=== PATIENT | female | born 1965 | race Caucasian/White ===

== ENCOUNTER 2017-10-31 20:16 | Inpatient (IN) | payer MEDICARE, BC ==
[~2017-10-31] VITALS: Ht 165.1 cm; Wt 77.0 kg
[~2017-10-31 20:16] MED LIST: ALBU18HF2 INH; ASPI-845 PO; CARV-50 PO; DILT180C66 PO; FOLI0.8T7 PO; FURO80TA3 PO; GUAI1TBM19 PO; HYDR-4069 PO; IPRA3AMP IH; METO5TAB7 PO; SERT50TA10 PO; SEVE800T7 PO; SPIIN INH; ZINC50TA4 PO; biotin PO
[2017-10-31 20:36] LABS: HEMATOCRIT 30.7 % (35.0-45.0); HEMOGLOBIN 10.2 g/dl (12.0-16.0); MEAN CORPUSCULAR HEMOGLOBIN 31.3 PG (27.0-31.0); MEAN CORPUSCULAR HGB CONC 33.1 % (33.0-36.5); MEAN CORPUSCULAR VOLUME 94.4 FL (78-98); MEAN PLATELET VOLUME 8.6 FL (7.4-10.4); PLATELET COUNT 221 X10'3 (140-440); RED BLOOD COUNT 3.25 X10'6 (4.20-5.60); RED CELL DISTRIBUTION WIDTH 15.4 % (11.5-14.5); WHITE BLOOD COUNT 8.1 X10'3 (4.5-11.0)
[2017-10-31 20:47] LABS: INR 1.2 INR; PARTIAL THROMBOPLASTIN TIME 25 SECONDS (22-32)
[2017-10-31 20:50] LABS: ALBUMIN 2.6 G/DL (3.4-5.0); ALBUMIN/GLOBULIN RATIO 0.7 (1.1-1.5); ALKALINE PHOSPHATASE 127 IU/L (46-116); ANION GAP 23 (8-16); ASPARTATE AMINO TRANSFERASE 8 U/L (10-37); BILIRUBIN,TOTAL 0.4 MG/DL (0.1-1.0); BLOOD UREA NITROGEN 59 MG/DL (7-18); CALCIUM 8.5 MG/DL (8.5-10.1); CHLORIDE 98 MMOL/L (99-107); CREATININE 14.83 MG/DL (0.40-0.90); GLUCOSE 99 MG/DL (70-104); POTASSIUM 3.3 MMOL/L (3.5-5.1); SODIUM 142 MMOL/L (135-145); TOTAL CARBON DIOXIDE 21.1 MMOL/L (24-32); TOTAL PROTEIN 6.3 G/DL (6.4-8.2); eGFR 3 ML/MIN
[2017-10-31 20:54] LABS: ALANINE AMINOTRANSFERASE < 6 U/L (12-78)
[2017-10-31 21:03] LABS: TOTAL CELLS COUNTED 100
[2017-10-31 21:04] LABS: ANISOCYTOSIS FEW; PLATELET ESTIMATE NORMAL; POIKILOCYTOSIS FEW
[2017-10-31 21:23] LABS: MAGNESIUM 2.2 MG/DL (1.5-2.4); PHOSPHORUS 6.5 MG/DL (2.3-4.5)
[2017-10-31] MEDS ORDERED: sodium bicarbonate (8.4%) 1 mEq/ml syringe IV ONE (21:30)
[2017-10-31] MEDS ORDERED: magnesium/D5W IVPB 100 ML IV ONE (21:40)
[2017-10-31] MEDS ORDERED: acetaminophen 325mg tablet PO PRN (22:15)
[2017-10-31] MEDS ORDERED: DILT180C53 PO (22:42)
[2017-10-31] MEDS ORDERED: VALS80TA2 PO (22:42)
[2017-10-31] MEDS ORDERED: FURO80TA87 PO (22:43)
[2017-10-31] MEDS ORDERED: CINA30TA PO (22:43)
[2017-10-31] MEDS ORDERED: CARV3.122 PO (22:45)
[2017-10-31 23:52] VITALS: BP 157/70
[2017-11-01] MEDS ORDERED: ipratropium/albuterol 3ml nebule IH PRN
[2017-11-01] MEDS ORDERED: albuterol 2.5 MG/3 ML nebule NEB PRN (00:40)
[2017-11-01] MEDS ORDERED: GUAIFENESIN PO PRN (00:50)
[2017-11-01] MEDS ORDERED: DEXTROMETHORPHAN PO PRN (00:50)
[2017-11-01] MEDS ORDERED: HYDROcodone/acetaminophen 5mg/325mg tablet PO PRN ×2 (00:55)
[2017-11-01] MEDS ORDERED: ipratropium 0.5 MG/2.5ML nebule IH PRN (00:55)
[2017-11-01] MEDS: hydrALAZINE 25 MG tablet PO SCH ×4 (01:02→23:48)
[2017-11-01 03:00] VITALS: BP 154/61
[2017-11-01 03:27] LABS: BASOPHILS % (AUTO) 0.3 % (0-1); EOSINOPHILS # (AUTO) 0.4 X10'3 (0-0.9); EOSINOPHILS % (AUTO) 5.3 % (0-6); HEMATOCRIT 29.5 % (35.0-45.0); HEMOGLOBIN 9.8 g/dl (12.0-16.0); LYMPHOCYTES # (AUTO) 0.9 X10'3 (1.1-4.8); LYMPHOCYTES % (AUTO) 11.1 % (21-51); MEAN CORPUSCULAR HEMOGLOBIN 31.5 PG (27.0-31.0); MEAN CORPUSCULAR HGB CONC 33.3 % (33.0-36.5); MEAN CORPUSCULAR VOLUME 94.5 FL (78-98); MEAN PLATELET VOLUME 8.8 FL (7.4-10.4); MONOCYTES # (AUTO) 0.5 X10'3 (0-0.9); MONOCYTES % (AUTO) 6.4 % (2-12); NEUTROPHILS # (AUTO) 6.5 X10'3 (1.8-7.7); NEUTROPHILS % (AUTO) 76.9 % (42-75); PLATELET COUNT 216 X10'3 (140-440); RED BLOOD COUNT 3.13 X10'6 (4.20-5.60); RED CELL DISTRIBUTION WIDTH 15.1 % (11.5-14.5); WHITE BLOOD COUNT 8.5 X10'3 (4.5-11.0)
[2017-11-01 03:46] LABS: ALBUMIN 2.6 G/DL (3.4-5.0); ANION GAP 15 (8-16); BLOOD UREA NITROGEN 59 MG/DL (7-18); BUN/CREATININE RATIO 3.8 (6.6-38.0); CALCIUM 8.6 MG/DL (8.5-10.1); CHLORIDE 99 MMOL/L (99-107); CREATININE 15.53 MG/DL (0.40-0.90); GLUCOSE 107 MG/DL (70-104); MAGNESIUM 2.7 MG/DL (1.5-2.4); PHOSPHORUS 6.9 MG/DL (2.3-4.5); POTASSIUM 3.2 MMOL/L (3.5-5.1); SODIUM 141 MMOL/L (135-145); TOTAL CARBON DIOXIDE 26.6 MMOL/L (24-32); eGFR 2 ML/MIN
[2017-11-01 06:00] VITALS: BP 140/61
[2017-11-01] MEDS ORDERED: SEVELAMER HCL PO SCH (08:00)
[2017-11-01] MEDS: valsartan 80mg tablet PO SCH (08:00)
[2017-11-01] MEDS: metolazone 2.5mg tablet PO SCH (08:00)
[2017-11-01] MEDS: furosemide 40mg tablet PO SCH ×2 (08:00→21:41)
[2017-11-01] MEDS: diltiazem CD 180mg cap (once-daily) PO SCH ×2 (08:00→21:41)
[2017-11-01] MEDS: carVEDilol 3.125mg tablet PO SCH ×2 (08:00→21:47)
[2017-11-01] MEDS: folic acid/vitamin B complex w/vitamin C 0.8mg tablet PO SCH (08:14)
[2017-11-01] MEDS: aspirin 325mg tablet, delayed-release (Ecotrin) PO SCH (08:14)
[2017-11-01] MEDS: sertraline 50mg tablet PO SCH (08:15)
[2017-11-01] MEDS: zinc sulfate 220mg capsule PO SCH (08:15)
[2017-11-01] MEDS: heparin, porcine 5000 units/ml vial SQ SCH ×2 (08:16→21:41)
[2017-11-01] MEDS ORDERED: normal saline 1000ml 250 ML IV PRN (08:38)
[2017-11-01] MEDS ORDERED: LIDOcaine 1% (10mg/ml) 2ml vial SQ ONE (08:40)
[2017-11-01] MEDS ORDERED: heparin 1,000 units/ml 10ml inj IV ONE (08:40)
[2017-11-01] MEDS ORDERED: epoetin 20,000 units/ml inj IV ONE (08:40)
[2017-11-01 09:05] LABS: C DIFF ANTIGEN POSITIVE (NEGATIVE); C DIFF SPECIMEN=DIARRHEA? ACCEPTABLE; C DIFFICILE TOXINS A&B POSITIVE (Neg)
[2017-11-01] MEDS ORDERED: vancomycin 250MG/10ML UD oral solution 10ML BOTTLE PO SCH (09:35)
[2017-11-01] MEDS: sevelamer carbonate 800mg tablet PO SCH ×3 (10:45→18:03)
[2017-11-01] MEDS: cinacalcet 30mg tablet PO SCH (10:46)
[2017-11-01 11:00] VITALS: BP 183/80
[2017-11-01] MEDS: vancomcyin 250mg capsules PO SCH ×2 (14:24→21:41)
[2017-11-01 15:00] VITALS: BP 161/77
[2017-11-01 19:00] VITALS: BP 163/74
[2017-11-01 23:00] VITALS: BP 169/76
[2017-11-02] MEDS: vancomcyin 250mg capsules PO SCH ×4 (02:25→20:52)
[2017-11-02 03:54] VITALS: BP 152/66
[2017-11-02 07:15] VITALS: BP 155/72
[2017-11-02 07:20] LABS: BASOPHILS % (AUTO) 0.5 % (0-1); EOSINOPHILS # (AUTO) 0.7 X10'3 (0-0.9); EOSINOPHILS % (AUTO) 11.2 % (0-6); HEMATOCRIT 30.9 % (35.0-45.0); HEMOGLOBIN 10.2 g/dl (12.0-16.0); LYMPHOCYTES # (AUTO) 0.7 X10'3 (1.1-4.8); LYMPHOCYTES % (AUTO) 12.1 % (21-51); MEAN CORPUSCULAR HGB CONC 33.1 % (33.0-36.5); MEAN CORPUSCULAR VOLUME 93.7 FL (78-98); MEAN PLATELET VOLUME 8.3 FL (7.4-10.4); MONOCYTES # (AUTO) 0.6 X10'3 (0-0.9); MONOCYTES % (AUTO) 10.3 % (2-12); NEUTROPHILS # (AUTO) 3.9 X10'3 (1.8-7.7); NEUTROPHILS % (AUTO) 65.9 % (42-75); PLATELET COUNT 216 X10'3 (140-440); RED CELL DISTRIBUTION WIDTH 15.9 % (11.5-14.5); WHITE BLOOD COUNT 5.9 X10'3 (4.5-11.0)
[2017-11-02 07:32] LABS: ALBUMIN 2.6 G/DL (3.4-5.0); ANION GAP 10 (8-16); BLOOD UREA NITROGEN 14 MG/DL (7-18); CALCIUM 8.2 MG/DL (8.5-10.1); CHLORIDE 103 MMOL/L (99-107); CREATININE 6.91 MG/DL (0.40-0.90); GLUCOSE 105 MG/DL (70-104); PHOSPHORUS 3.6 MG/DL (2.3-4.5); POTASSIUM 3.4 MMOL/L (3.5-5.1); SODIUM 141 MMOL/L (135-145); TOTAL CARBON DIOXIDE 28.4 MMOL/L (24-32); eGFR 6 ML/MIN
[2017-11-02] MEDS: sevelamer carbonate 800mg tablet PO SCH ×4 (08:00→17:42)
[2017-11-02] MEDS: sertraline 50mg tablet PO SCH (09:09)
[2017-11-02] MEDS: zinc sulfate 220mg capsule PO SCH (09:09)
[2017-11-02] MEDS: cinacalcet 30mg tablet PO SCH (09:10)
[2017-11-02] MEDS: folic acid/vitamin B complex w/vitamin C 0.8mg tablet PO SCH (09:10)
[2017-11-02] MEDS: aspirin 325mg tablet, delayed-release (Ecotrin) PO SCH (09:10)
[2017-11-02] MEDS: hydrALAZINE 25 MG tablet PO SCH ×2 (09:10→16:00)
[2017-11-02] MEDS: carVEDilol 3.125mg tablet PO SCH ×2 (09:10→20:53)
[2017-11-02] MEDS: metolazone 2.5mg tablet PO SCH (09:10)
[2017-11-02] MEDS: diltiazem CD 180mg cap (once-daily) PO SCH ×2 (09:10→20:53)
[2017-11-02] MEDS: furosemide 40mg tablet PO SCH ×2 (09:11→20:52)
[2017-11-02] MEDS: valsartan 80mg tablet PO SCH (09:11)
[2017-11-02] MEDS: heparin, porcine 5000 units/ml vial SQ SCH ×2 (09:12→20:51)
[2017-11-02] MEDS ORDERED: hydrocortisone acetate 25mg rectal suppository RC PRN (11:25)
[2017-11-02] MEDS ORDERED: sevelamer carbonate 800mg tablet PO SCH (12:10)
[2017-11-02 13:59] VITALS: BP 141/68
[2017-11-02] MEDS: diphenhydrAMINE 25mg capsule PO PRN (15:01)
[2017-11-02 17:07] VITALS: BP 124/70
[2017-11-02 18:00] VITALS: BP 112/70
[2017-11-02] MEDS ORDERED: lactobacillus rhamnosus 10,000 MMU CELLS/CAPSULE PO SCH (20:00)
[2017-11-02 22:00] VITALS: BP 154/75
[2017-11-03] MEDS: diphenhydrAMINE 25mg capsule PO PRN ×3 (00:30→19:52)
[2017-11-03] MEDS: hydrALAZINE 25 MG tablet PO SCH ×3 (00:30→16:16)
[2017-11-03] MEDS: vancomcyin 250mg capsules PO SCH ×4 (01:45→19:52)
[2017-11-03 02:00] VITALS: BP 156/64
[2017-11-03 05:34] LABS: BASOPHILS % (AUTO) 0.5 % (0-1); EOSINOPHILS # (AUTO) 0.8 X10'3 (0-0.9); EOSINOPHILS % (AUTO) 15.3 % (0-6); HEMATOCRIT 30.1 % (35.0-45.0); LYMPHOCYTES # (AUTO) 1.1 X10'3 (1.1-4.8); LYMPHOCYTES % (AUTO) 21.2 % (21-51); MEAN CORPUSCULAR HEMOGLOBIN 31.3 PG (27.0-31.0); MEAN CORPUSCULAR HGB CONC 33.4 % (33.0-36.5); MEAN CORPUSCULAR VOLUME 93.9 FL (78-98); MEAN PLATELET VOLUME 8.2 FL (7.4-10.4); MONOCYTES # (AUTO) 0.6 X10'3 (0-0.9); NEUTROPHILS # (AUTO) 2.7 X10'3 (1.8-7.7); PLATELET COUNT 215 X10'3 (140-440); RED CELL DISTRIBUTION WIDTH 15.8 % (11.5-14.5); WHITE BLOOD COUNT 5.3 X10'3 (4.5-11.0)
[2017-11-03 06:00] VITALS: BP 146/70
[2017-11-03 06:10] LABS: ALBUMIN 2.7 G/DL (3.4-5.0); ANION GAP 12 (8-16); BLOOD UREA NITROGEN 18 MG/DL (7-18); CALCIUM 8.1 MG/DL (8.5-10.1); CHLORIDE 102 MMOL/L (99-107); CREATININE 8.96 MG/DL (0.40-0.90); GLUCOSE 109 MG/DL (70-104); MAGNESIUM 2.1 MG/DL (1.5-2.4); PHOSPHORUS 4.3 MG/DL (2.3-4.5); SODIUM 143 MMOL/L (135-145); TOTAL CARBON DIOXIDE 28.7 MMOL/L (24-32); eGFR 5 ML/MIN
[2017-11-03] MEDS ORDERED: potassium Cl 20 mEq SR tablet PO PRN ×4 (06:30→06:50)
[2017-11-03] MEDS ORDERED: potassium Cl 40MEQ/NS 500ml 500 ML IV PRN ×4 (06:30→06:50)
[2017-11-03] MEDS: heparin, porcine 5000 units/ml vial SQ SCH ×2 (07:37→19:53)
[2017-11-03] MEDS: metolazone 2.5mg tablet PO SCH (07:37)
[2017-11-03] MEDS: valsartan 80mg tablet PO SCH (07:38)
[2017-11-03] MEDS: sertraline 50mg tablet PO SCH (07:40)
[2017-11-03] MEDS: cinacalcet 30mg tablet PO SCH (07:40)
[2017-11-03] MEDS: aspirin 325mg tablet, delayed-release (Ecotrin) PO SCH (07:41)
[2017-11-03] MEDS: diltiazem CD 180mg cap (once-daily) PO SCH ×2 (07:41→19:52)
[2017-11-03] MEDS: carVEDilol 3.125mg tablet PO SCH ×2 (07:41→19:52)
[2017-11-03] MEDS: zinc sulfate 220mg capsule PO SCH (07:41)
[2017-11-03] MEDS: folic acid/vitamin B complex w/vitamin C 0.8mg tablet PO SCH (07:42)
[2017-11-03] MEDS: furosemide 40mg tablet PO SCH ×2 (07:42→19:52)
[2017-11-03] MEDS: sevelamer carbonate 800mg tablet PO SCH ×3 (07:43→18:00)
[2017-11-03] MEDS ORDERED: K and/or MAG REPLACEMENT MC SCH ×2 (08:00)
[2017-11-03 11:00] VITALS: BP 137/79
[2017-11-03 15:00] VITALS: BP 141/74
[2017-11-03 19:00] VITALS: BP 155/72
[2017-11-03 23:00] VITALS: BP 151/66
[2017-11-04] MEDS: hydrALAZINE 25 MG tablet PO SCH ×3 (00:33→16:00)
[2017-11-04] MEDS: vancomcyin 250mg capsules PO SCH ×4 (01:08→22:20)
[2017-11-04 06:00] VITALS: BP 144/61
[2017-11-04 06:04] LABS: BASOPHILS % (AUTO) 0.3 % (0-1); EOSINOPHILS # (AUTO) 0.9 X10'3 (0-0.9); EOSINOPHILS % (AUTO) 13.4 % (0-6); HEMOGLOBIN 9.9 g/dl (12.0-16.0); LYMPHOCYTES % (AUTO) 16.1 % (21-51); MEAN CORPUSCULAR HEMOGLOBIN 31.4 PG (27.0-31.0); MEAN CORPUSCULAR HGB CONC 33.1 % (33.0-36.5); MEAN CORPUSCULAR VOLUME 94.9 FL (78-98); MEAN PLATELET VOLUME 8.2 FL (7.4-10.4); MONOCYTES # (AUTO) 0.7 X10'3 (0-0.9); MONOCYTES % (AUTO) 10.8 % (2-12); NEUTROPHILS # (AUTO) 3.8 X10'3 (1.8-7.7); NEUTROPHILS % (AUTO) 59.4 % (42-75); PLATELET COUNT 210 X10'3 (140-440); RED BLOOD COUNT 3.16 X10'6 (4.20-5.60); RED CELL DISTRIBUTION WIDTH 15.7 % (11.5-14.5); WHITE BLOOD COUNT 6.4 X10'3 (4.5-11.0)
[2017-11-04 06:12] LABS: ALBUMIN 2.7 G/DL (3.4-5.0); ANION GAP 15 (8-16); BLOOD UREA NITROGEN 31 MG/DL (7-18); CALCIUM 8.1 MG/DL (8.5-10.1); CHLORIDE 103 MMOL/L (99-107); CREATININE 10.49 MG/DL (0.40-0.90); GLUCOSE 84 MG/DL (70-104); MAGNESIUM 2.4 MG/DL (1.5-2.4); PHOSPHORUS 4.9 MG/DL (2.3-4.5); POTASSIUM 4.2 MMOL/L (3.5-5.1); SODIUM 144 MMOL/L (135-145); TOTAL CARBON DIOXIDE 26.5 MMOL/L (24-32); eGFR 4 ML/MIN
[2017-11-04] MEDS: diltiazem CD 180mg cap (once-daily) PO SCH ×2 (07:31→22:24)
[2017-11-04] MEDS: furosemide 40mg tablet PO SCH ×2 (07:31→22:21)
[2017-11-04] MEDS: carVEDilol 3.125mg tablet PO SCH ×2 (07:32→22:20)
[2017-11-04] MEDS: valsartan 80mg tablet PO SCH (07:32)
[2017-11-04] MEDS: metolazone 2.5mg tablet PO SCH (07:32)
[2017-11-04] MEDS: sevelamer carbonate 800mg tablet PO SCH ×3 (07:32→18:00)
[2017-11-04] MEDS: aspirin 325mg tablet, delayed-release (Ecotrin) PO SCH (07:33)
[2017-11-04] MEDS: diphenhydrAMINE 25mg capsule PO PRN ×3 (07:33→22:20)
[2017-11-04] MEDS: cinacalcet 30mg tablet PO SCH (07:33)
[2017-11-04] MEDS: zinc sulfate 220mg capsule PO SCH (07:33)
[2017-11-04] MEDS: folic acid/vitamin B complex w/vitamin C 0.8mg tablet PO SCH (07:33)
[2017-11-04] MEDS: sertraline 50mg tablet PO SCH (07:33)
[2017-11-04] MEDS: heparin, porcine 5000 units/ml vial SQ SCH ×2 (07:47→22:20)
[2017-11-04] MEDS ORDERED: normal saline 1000ml 250 ML IV PRN (08:00)
[2017-11-04] MEDS ORDERED: epoetin 20,000 units/ml inj IV ONE (08:00)
[2017-11-04] MEDS ORDERED: heparin 1,000 units/ml 10ml inj IV ONE (08:00)
[2017-11-04] MEDS ORDERED: LIDOcaine 1% (10mg/ml) 2ml vial SQ ONE (08:00)
[2017-11-04 11:00] VITALS: BP 152/71
[2017-11-04] MEDS ORDERED: ondansetron 4mg rapidly disintigrating tab PO PRN (13:15)
[2017-11-04 15:00] VITALS: BP 148/65
[2017-11-04 19:00] VITALS: BP 138/72
[2017-11-04 23:00] VITALS: BP 148/74
[2017-11-05] MEDS: hydrALAZINE 25 MG tablet PO SCH ×3 (01:05→16:00)
[2017-11-05] MEDS: vancomcyin 250mg capsules PO SCH ×3 (01:05→14:00)
[2017-11-05 03:00] VITALS: BP 149/73
[2017-11-05 06:00] VITALS: BP 135/60
[2017-11-05 06:10] LABS: BASOPHILS % (AUTO) 0.4 % (0-1); EOSINOPHILS # (AUTO) 0.9 X10'3 (0-0.9); EOSINOPHILS % (AUTO) 11.4 % (0-6); HEMATOCRIT 33.5 % (35.0-45.0); HEMOGLOBIN 11.2 g/dl (12.0-16.0); LYMPHOCYTES # (AUTO) 1.1 X10'3 (1.1-4.8); LYMPHOCYTES % (AUTO) 13.2 % (21-51); MEAN CORPUSCULAR HGB CONC 33.4 % (33.0-36.5); MEAN CORPUSCULAR VOLUME 95.7 FL (78-98); MEAN PLATELET VOLUME 8.2 FL (7.4-10.4); MONOCYTES # (AUTO) 0.7 X10'3 (0-0.9); NEUTROPHILS # (AUTO) 5.3 X10'3 (1.8-7.7); PLATELET COUNT 194 X10'3 (140-440); RED CELL DISTRIBUTION WIDTH 15.9 % (11.5-14.5); WHITE BLOOD COUNT 8.1 X10'3 (4.5-11.0)
[2017-11-05 06:28] LABS: ANION GAP 9 (8-16); BLOOD UREA NITROGEN 11 MG/DL (7-18); BUN/CREATININE RATIO 2.1 (6.6-38.0); CHLORIDE 101 MMOL/L (99-107); CREATININE 5.32 MG/DL (0.40-0.90); GLUCOSE 80 MG/DL (70-104); PHOSPHORUS 4.1 MG/DL (2.3-4.5); POTASSIUM 4.4 MMOL/L (3.5-5.1); SODIUM 141 MMOL/L (135-145); TOTAL CARBON DIOXIDE 31.4 MMOL/L (24-32); eGFR 8 ML/MIN
[2017-11-05] MEDS: aspirin 325mg tablet, delayed-release (Ecotrin) PO SCH (08:18)
[2017-11-05] MEDS: diltiazem CD 180mg cap (once-daily) PO SCH (08:18)
[2017-11-05] MEDS: metolazone 2.5mg tablet PO SCH (08:18)
[2017-11-05] MEDS: sertraline 50mg tablet PO SCH (08:19)
[2017-11-05] MEDS: valsartan 80mg tablet PO SCH (08:19)
[2017-11-05] MEDS: zinc sulfate 220mg capsule PO SCH (08:19)
[2017-11-05] MEDS: cinacalcet 30mg tablet PO SCH (08:19)
[2017-11-05] MEDS: diphenhydrAMINE 25mg capsule PO PRN (08:19)
[2017-11-05] MEDS: folic acid/vitamin B complex w/vitamin C 0.8mg tablet PO SCH (08:19)
[2017-11-05] MEDS: furosemide 40mg tablet PO SCH (08:19)
[2017-11-05] MEDS: carVEDilol 3.125mg tablet PO SCH (08:19)
[2017-11-05] MEDS: sevelamer carbonate 800mg tablet PO SCH ×2 (08:19→13:00)
[2017-11-05] MEDS: heparin, porcine 5000 units/ml vial SQ SCH (08:20)
[2017-11-05 11:00] VITALS: BP 111/70
[2017-11-05] MEDS ORDERED: VANC250C4 PO (13:42)
[2017-11-05 15:00] VITALS: BP 111/54
== END 2017-11-05 15:55 | disposition home or self-care (01) | DRG 371 ==
LOC: ER 20:17 → ED HOLD 22:14 → PCU 3S 23:28
PROVIDERS: ADMIT Internal Medicine Critical Care Medicine; ATTEND Internal Medicine Critical Care Medicine
PROC: 5A1D70Z Performance of Urinary Filtration, Intermittent, Less than 6 Hours Per Day (ICD-10-PCS; 2017-11-01)
PROC: 5A1D70Z Performance of Urinary Filtration, Intermittent, Less than 6 Hours Per Day (ICD-10-PCS; principal; 2017-11-04)
DX: A04.72 Enterocolitis due to Clostridium difficile, not specified as recurrent (principal); N18.6 End stage renal disease; I47.1 Supraventricular tachycardia; I13.2 Hypertensive heart and chronic kidney disease with heart failure and with stage 5 chronic kidney disease, or end stage renal disease; F17.200 Nicotine dependence, unspecified, uncomplicated; G89.29 Other chronic pain; I27.20 Pulmonary hypertension, unspecified; I45.81 Long QT syndrome; I50.9 Heart failure, unspecified; J44.9 Chronic obstructive pulmonary disease, unspecified; E87.6 Hypokalemia; Z90.721 Acquired absence of ovaries, unilateral; Z98.1 Arthrodesis status; Z99.2 Dependence on renal dialysis; Z88.8 Allergy status to other drugs, medicaments and biological substances; Z79.899 Other long term (current) drug therapy; Z79.82 Long term (current) use of aspirin
CPT/HCPCS: 36415; 71045; 80048; 80053; 83735; 84100; 84484; 85025; 85610; 85730; 87070; 87324; 87449; 93005; 94760; 96365; 99285; A6402; A6449; G0257; J0885; J1644; J3490; J7030; Q0163

== ENCOUNTER 2017-11-25 13:44 | Emergency (ER) | payer MEDICARE, BC ==
[~2017-11-25] VITALS: Ht 571.8 cm; Wt 75.0 kg
[~2017-11-25 13:44] MED LIST changes: -CARV-50 PO; +CARV3.122 PO; +CINA30TA PO; +DILT180C53 PO; -DILT180C66 PO; -FURO80TA3 PO; +FURO80TA87 PO; -HYDR-4069 PO; +VALS80TA2 PO; +VANC250C4 PO
[2017-11-25] MEDS ORDERED: nitroGLYCERIN 1gm ointment UD TP ONE (13:50)
[2017-11-25] MEDS ORDERED: metoprolol tartrate 1mg/ml inj IV ONE (13:50)
[2017-11-25 14:01] LABS: BASOPHILS % (AUTO) 0.5 % (0-1); EOSINOPHILS # (AUTO) 0.8 X10'3 (0-0.9); EOSINOPHILS % (AUTO) 13.8 % (0-6); HEMATOCRIT 33.1 % (35.0-45.0); LYMPHOCYTES # (AUTO) 0.9 X10'3 (1.1-4.8); LYMPHOCYTES % (AUTO) 16.3 % (21-51); MEAN CORPUSCULAR HEMOGLOBIN 30.7 PG (27.0-31.0); MEAN CORPUSCULAR HGB CONC 33.2 % (33.0-36.5); MEAN CORPUSCULAR VOLUME 92.6 FL (78-98); MEAN PLATELET VOLUME 8.5 FL (7.4-10.4); MONOCYTES # (AUTO) 0.5 X10'3 (0-0.9); MONOCYTES % (AUTO) 8.2 % (2-12); NEUTROPHILS # (AUTO) 3.5 X10'3 (1.8-7.7); NEUTROPHILS % (AUTO) 61.2 % (42-75); PLATELET COUNT 170 X10'3 (140-440); RED BLOOD COUNT 3.57 X10'6 (4.20-5.60); RED CELL DISTRIBUTION WIDTH 16.2 % (11.5-14.5); WHITE BLOOD COUNT 5.7 X10'3 (4.5-11.0)
[2017-11-25 14:18] LABS: ALANINE AMINOTRANSFERASE 19 U/L (12-78); ALBUMIN 3.3 G/DL (3.4-5.0); ALBUMIN/GLOBULIN RATIO 0.9 (1.1-1.5); ALKALINE PHOSPHATASE 137 IU/L (46-116); ANION GAP 6 (8-16); ASPARTATE AMINO TRANSFERASE 14 U/L (10-37); BILIRUBIN,TOTAL 0.8 MG/DL (0.1-1.0); BLOOD UREA NITROGEN 19 MG/DL (7-18); BUN/CREATININE RATIO 3.4 (6.6-38.0); CALCIUM 8.9 MG/DL (8.5-10.1); CHLORIDE 98 MMOL/L (99-107); CREATININE 5.58 MG/DL (0.40-0.90); GLUCOSE 84 MG/DL (70-104); POTASSIUM 3.6 MMOL/L (3.5-5.1); SODIUM 139 MMOL/L (135-145); TOTAL CARBON DIOXIDE 34.7 MMOL/L (24-32); eGFR 8 ML/MIN
[2017-11-25 14:25] LABS: MAGNESIUM 2.1 MG/DL (1.5-2.4)
[2017-11-25 17:33] VITALS: BP 159/76
[2017-11-28] MEDS ORDERED: SEVE800T8 PO (13:59)
[2017-11-30] MEDS ORDERED: METR500T4 PO (11:57)
[2017-11-30] MEDS ORDERED: VANC125C4 PO (11:57)
[2017-11-30] MEDS ORDERED: CLE150C PO (11:57)
== END 2017-11-25 17:34 | disposition home or self-care (01) ==
LOC: ER 13:45
DX: I48.91 Unspecified atrial fibrillation (principal); J44.9 Chronic obstructive pulmonary disease, unspecified; I13.0 Hypertensive heart and chronic kidney disease with heart failure and stage 1 through stage 4 chronic kidney disease, or unspecified chronic kidney disease; N18.9 Chronic kidney disease, unspecified; G89.29 Other chronic pain; Z98.890 Other specified postprocedural states; Z90.89 Acquired absence of other organs; Z99.2 Dependence on renal dialysis; Z88.8 Allergy status to other drugs, medicaments and biological substances; Z79.82 Long term (current) use of aspirin; Z79.899 Other long term (current) drug therapy
CPT/HCPCS: 36415; 71045; 80053; 83735; 83880; 84484; 85025; 93005; 96374; 99285; J3490

== ENCOUNTER 2017-12-18 13:30 | Inpatient (IN) | payer MEDICARE, BC ==
[~2017-12-18] VITALS: Ht 165.1 cm; Wt 84.0 kg
[~2017-12-18 13:30] MED LIST changes: +CLE150C PO; -IPRA3AMP IH; +METR500T4 PO; -SEVE800T7 PO; +SEVE800T8 PO; +VANC125C4 PO; -VANC250C4 PO
[2017-12-18] MEDS ORDERED: methylPREDNISolone sod succ 125mg/2ml vial IV ONE (13:40)
[2017-12-18] MEDS ORDERED: ipratropium/albuterol 3ml nebule NEB ONE (13:40)
[2017-12-18 13:59] LABS: BASOPHILS % (AUTO) 0.4 % (0-1); EOSINOPHILS # (AUTO) 0.6 X10'3 (0-0.9); HEMATOCRIT 33.5 % (35.0-45.0); HEMOGLOBIN 11.1 g/dl (12.0-16.0); LYMPHOCYTES # (AUTO) 0.8 X10'3 (1.1-4.8); LYMPHOCYTES % (AUTO) 16.3 % (21-51); MEAN CORPUSCULAR HEMOGLOBIN 30.9 PG (27.0-31.0); MEAN CORPUSCULAR VOLUME 93.7 FL (78-98); MEAN PLATELET VOLUME 9.1 FL (7.4-10.4); MONOCYTES # (AUTO) 0.5 X10'3 (0-0.9); MONOCYTES % (AUTO) 10.4 % (2-12); NEUTROPHILS % (AUTO) 59.9 % (42-75); PLATELET COUNT 174 X10'3 (140-440); RED BLOOD COUNT 3.58 X10'6 (4.20-5.60); RED CELL DISTRIBUTION WIDTH 17.9 % (11.5-14.5)
[2017-12-18] MEDS ORDERED: diltiazem 5mg/ml 5ml inj. IV ONE (14:10)
[2017-12-18] MEDS ORDERED: metoprolol tartrate 1mg/ml inj IV ONE (14:10)
[2017-12-18 14:12] LABS: ALANINE AMINOTRANSFERASE 14 U/L (12-78); ALBUMIN 3.3 G/DL (3.4-5.0); ALBUMIN/GLOBULIN RATIO 0.9 (1.1-1.5); ALKALINE PHOSPHATASE 140 IU/L (46-116); ANION GAP 7 (8-16); ASPARTATE AMINO TRANSFERASE 13 U/L (10-37); BILIRUBIN,TOTAL 0.6 MG/DL (0.1-1.0); BLOOD UREA NITROGEN 14 MG/DL (7-18); BUN/CREATININE RATIO 3.3 (6.6-38.0); CALCIUM 9.1 MG/DL (8.5-10.1); CHLORIDE 98 MMOL/L (99-107); CREATININE 4.22 MG/DL (0.40-0.90); GLUCOSE 86 MG/DL (70-104); POTASSIUM 3.5 MMOL/L (3.5-5.1); SODIUM 141 MMOL/L (135-145); TOTAL CARBON DIOXIDE 35.9 MMOL/L (24-32); eGFR 11 ML/MIN
[2017-12-18 14:20] LABS: MAGNESIUM 2.2 MG/DL (1.5-2.4)
[2017-12-18] MEDS ORDERED: amiodarone/D5 360MG/200ML BAG 200 ML IV PRN (15:09)
[2017-12-18] MEDS ORDERED: acetaminophen 325mg tablet PO PRN (15:10)
[2017-12-18] MEDS ORDERED: amiodarone 150mg/dext, iso-os 100 ML IV ONE (15:10)
[2017-12-18] MEDS ORDERED: vancomycin/NS 1 GM ADD-VANTAGE 250 ML IV PRN (15:20)
[2017-12-18] MEDS ORDERED: vancomycin/NS 1 GM ADD-VANTAGE 250 ML IV ONE (15:30)
[2017-12-18] MEDS: HYDROcodone/acetaminophen 10/325mg tab PO PRN ×2 (16:24→21:23)
[2017-12-18] MEDS: ceftazidime 1000mg in D5W 50ml 50 ML IV SCH ×2 (16:35→19:56)
[2017-12-18] MEDS ORDERED: BIOT25008 PO (16:39)
[2017-12-18] MEDS ORDERED: HYDR-4069 PO (16:42)
[2017-12-18] MEDS ORDERED: HYDR-3964 PO (16:42)
[2017-12-18] MEDS ORDERED: cefTAZidime inj. 1 GM in normal saline 100ml IV soln 100 ML IV SCH (20:00)
[2017-12-18] MEDS: docusate sod 100mg capsule PO SCH (20:00)
[2017-12-18] MEDS: heparin, porcine 5000 units/ml vial SQ SCH (20:27)
[2017-12-18] MEDS: ipratropium/albuterol 3ml nebule NEB SCH (20:35)
[2017-12-18 22:00] VITALS: BP 146/74
[2017-12-19] MEDS ORDERED: HYDROcodone/acetaminophen 5mg/325mg tablet PO PRN (00:30)
[2017-12-19] MEDS ORDERED: albuterol 2.5 MG/3 ML nebule NEB PRN (00:30)
[2017-12-19] MEDS ORDERED: guaiFENesin ER 600mg tablet PO PRN (00:30)
[2017-12-19] MEDS ORDERED: ipratropium 0.5 MG/2.5ML nebule IH SCH (00:45)
[2017-12-19 01:57] LABS: ALANINE AMINOTRANSFERASE 17 U/L (12-78); ALBUMIN 3.1 G/DL (3.4-5.0); ALBUMIN/GLOBULIN RATIO 0.9 (1.1-1.5); ALKALINE PHOSPHATASE 129 IU/L (46-116); ANION GAP 6 (8-16); ASPARTATE AMINO TRANSFERASE 15 U/L (10-37); BILIRUBIN,TOTAL 0.4 MG/DL (0.1-1.0); BLOOD UREA NITROGEN 27 MG/DL (7-18); BUN/CREATININE RATIO 4.7 (6.6-38.0); CALCIUM 7.9 MG/DL (8.5-10.1); CHLORIDE 98 MMOL/L (99-107); CREATININE 5.73 MG/DL (0.40-0.90); GLUCOSE 187 MG/DL (70-104); POTASSIUM 4.4 MMOL/L (3.5-5.1); SODIUM 136 MMOL/L (135-145); TOTAL PROTEIN 6.5 G/DL (6.4-8.2); eGFR 8 ML/MIN
[2017-12-19 01:59] LABS: BASOPHILS % (AUTO) 0.1 % (0-1); EOSINOPHILS % (AUTO) 0.2 % (0-6); HEMATOCRIT 31.9 % (35.0-45.0); HEMOGLOBIN 10.5 g/dl (12.0-16.0); LYMPHOCYTES # (AUTO) 0.4 X10'3 (1.1-4.8); LYMPHOCYTES % (AUTO) 7.9 % (21-51); MEAN CORPUSCULAR HEMOGLOBIN 31.5 PG (27.0-31.0); MEAN CORPUSCULAR VOLUME 95.3 FL (78-98); MEAN PLATELET VOLUME 9.2 FL (7.4-10.4); MONOCYTES # (AUTO) 0.1 X10'3 (0-0.9); MONOCYTES % (AUTO) 1.3 % (2-12); NEUTROPHILS # (AUTO) 4.3 X10'3 (1.8-7.7); NEUTROPHILS % (AUTO) 90.5 % (42-75); PLATELET COUNT 187 X10'3 (140-440); RED BLOOD COUNT 3.34 X10'6 (4.20-5.60); RED CELL DISTRIBUTION WIDTH 17.3 % (11.5-14.5); WHITE BLOOD COUNT 4.8 X10'3 (4.5-11.0)
[2017-12-19 02:00] VITALS: BP 147/74
[2017-12-19 02:00] LABS: MAGNESIUM 2.3 MG/DL (1.5-2.4); PHOSPHORUS 3.4 MG/DL (2.3-4.5); VANCOMYCIN,RANDOM 21.6 UG/ML
[2017-12-19] MEDS: guaiFENesin ER 600mg tablet PO PRN (02:30)
[2017-12-19] MEDS: VANCOMYCIN LEVEL IV SCH (03:00)
[2017-12-19] MEDS: ipratropium/albuterol 3ml nebule NEB SCH ×4 (03:05→20:20)
[2017-12-19 06:00] VITALS: BP 150/84
[2017-12-19] MEDS ORDERED: valsartan 80mg tablet PO SCH (08:00)
[2017-12-19] MEDS: sertraline 50mg tablet PO SCH (08:07)
[2017-12-19] MEDS: folic acid/vitamin B complex w/vitamin C 0.8mg tablet PO SCH (08:07)
[2017-12-19] MEDS: zinc sulfate 220mg capsule PO SCH (08:07)
[2017-12-19] MEDS: cinacalcet 30mg tablet PO SCH (08:08)
[2017-12-19] MEDS: carVEDilol 3.125mg tablet PO SCH ×2 (08:08→20:36)
[2017-12-19] MEDS: losartan 50mg tablet PO SCH (08:08)
[2017-12-19] MEDS: hydrALAZINE 25 MG tablet PO SCH ×2 (08:08→16:35)
[2017-12-19] MEDS: furosemide 40mg tablet PO SCH ×2 (08:08→20:36)
[2017-12-19] MEDS: aspirin 325mg tablet, delayed-release (Ecotrin) PO SCH (08:08)
[2017-12-19] MEDS: ceftazidime 1000mg in D5W 50ml 50 ML IV SCH ×2 (08:09→20:37)
[2017-12-19] MEDS: HYDROcodone/acetaminophen 10/325mg tab PO PRN ×2 (08:09→18:30)
[2017-12-19] MEDS: docusate sod 100mg capsule PO SCH ×2 (08:09→20:36)
[2017-12-19] MEDS: diltiazem CD 180mg cap (once-daily) PO SCH ×2 (08:09→20:36)
[2017-12-19] MEDS: heparin, porcine 5000 units/ml vial SQ SCH ×2 (08:10→20:38)
[2017-12-19] MEDS: metolazone 2.5mg tablet PO SCH (08:10)
[2017-12-19] MEDS: sevelamer carbonate 800mg tablet PO SCH ×3 (08:11→18:31)
[2017-12-19 11:00] VITALS: BP 141/76
[2017-12-19] MEDS: calcium carbonate 500mg chew tablet PO PRN (13:14)
[2017-12-19 15:00] VITALS: BP 145/79
[2017-12-19 19:00] VITALS: BP 145/75
[2017-12-19] MEDS: lactobacillus rhamnosus 10,000 MMU CELLS/CAPSULE PO SCH (20:36)
[2017-12-19 23:00] VITALS: BP 156/93
[2017-12-19] MEDS: ipratropium/albuterol 3ml nebule NEB PRN (23:50)
[2017-12-20] MEDS: hydrALAZINE 25 MG tablet PO SCH ×4 (00:16→23:29)
[2017-12-20 03:00] VITALS: BP 133/71
[2017-12-20] MEDS: VANCOMYCIN LEVEL IV SCH (03:00)
[2017-12-20] MEDS: ipratropium/albuterol 3ml nebule NEB SCH ×4 (03:33→19:22)
[2017-12-20 05:34] LABS: BASOPHILS % (AUTO) 0.3 % (0-1); EOSINOPHILS # (AUTO) 0.2 X10'3 (0-0.9); EOSINOPHILS % (AUTO) 2.3 % (0-6); HEMATOCRIT 33.9 % (35.0-45.0); HEMOGLOBIN 10.9 g/dl (12.0-16.0); LYMPHOCYTES # (AUTO) 1.3 X10'3 (1.1-4.8); LYMPHOCYTES % (AUTO) 12.7 % (21-51); MEAN CORPUSCULAR HEMOGLOBIN 30.4 PG (27.0-31.0); MEAN CORPUSCULAR HGB CONC 32.3 % (33.0-36.5); MEAN CORPUSCULAR VOLUME 94.3 FL (78-98); MEAN PLATELET VOLUME 9.7 FL (7.4-10.4); MONOCYTES # (AUTO) 0.5 X10'3 (0-0.9); NEUTROPHILS % (AUTO) 79.7 % (42-75); PLATELET COUNT 205 X10'3 (140-440); RED BLOOD COUNT 3.59 X10'6 (4.20-5.60); RED CELL DISTRIBUTION WIDTH 18.4 % (11.5-14.5); WHITE BLOOD COUNT 10.1 X10'3 (4.5-11.0)
[2017-12-20 06:00] VITALS: BP 143/76
[2017-12-20 06:14] LABS: ALANINE AMINOTRANSFERASE 13 U/L (12-78); ALBUMIN 3.3 G/DL (3.4-5.0); ALBUMIN/GLOBULIN RATIO 0.9 (1.1-1.5); ALKALINE PHOSPHATASE 119 IU/L (46-116); ANION GAP 12 (8-16); ASPARTATE AMINO TRANSFERASE 8 U/L (10-37); BILIRUBIN,TOTAL 0.6 MG/DL (0.1-1.0); BLOOD UREA NITROGEN 54 MG/DL (7-18); BUN/CREATININE RATIO 6.6 (6.6-38.0); CALCIUM 7.9 MG/DL (8.5-10.1); CHLORIDE 93 MMOL/L (99-107); GLUCOSE 113 MG/DL (70-104); MAGNESIUM 2.3 MG/DL (1.5-2.4); PHOSPHORUS 6.1 MG/DL (2.3-4.5); SODIUM 136 MMOL/L (135-145); TOTAL CARBON DIOXIDE 31.2 MMOL/L (24-32); TOTAL PROTEIN 6.9 G/DL (6.4-8.2); VANCOMYCIN,RANDOM 16.4 UG/ML; eGFR 5 ML/MIN
[2017-12-20] MEDS: heparin, porcine 5000 units/ml vial SQ SCH ×2 (07:24→20:38)
[2017-12-20] MEDS: cinacalcet 30mg tablet PO SCH (07:24)
[2017-12-20] MEDS: sertraline 50mg tablet PO SCH (07:24)
[2017-12-20] MEDS: zinc sulfate 220mg capsule PO SCH (07:24)
[2017-12-20] MEDS: diltiazem CD 180mg cap (once-daily) PO SCH ×2 (07:25→20:41)
[2017-12-20] MEDS: aspirin 325mg tablet, delayed-release (Ecotrin) PO SCH (07:25)
[2017-12-20] MEDS: lactobacillus rhamnosus 10,000 MMU CELLS/CAPSULE PO SCH ×2 (07:25→20:39)
[2017-12-20] MEDS: folic acid/vitamin B complex w/vitamin C 0.8mg tablet PO SCH (07:25)
[2017-12-20] MEDS: losartan 50mg tablet PO SCH (07:25)
[2017-12-20] MEDS: sevelamer carbonate 800mg tablet PO SCH ×3 (07:32→17:54)
[2017-12-20] MEDS: metolazone 2.5mg tablet PO SCH (07:33)
[2017-12-20] MEDS: docusate sod 100mg capsule PO SCH ×2 (07:36→20:38)
[2017-12-20] MEDS ORDERED: LIDOcaine 1% (10mg/ml) 2ml vial SQ ONE (08:00)
[2017-12-20] MEDS ORDERED: heparin 1,000unit/ml 10ml vial 10 ML IV ONE (08:00)
[2017-12-20] MEDS ORDERED: normal saline 1000ml 250 ML IV PRN (08:00)
[2017-12-20] MEDS: furosemide 40mg tablet PO SCH ×2 (08:00→20:41)
[2017-12-20] MEDS: ceftazidime 1000mg in D5W 50ml 50 ML IV SCH ×2 (08:00→20:49)
[2017-12-20] MEDS: carVEDilol 3.125mg tablet PO SCH ×2 (08:00→20:39)
[2017-12-20] MEDS ORDERED: heparin 1,000 units/ml 10ml inj IV ONE (08:00)
[2017-12-20] MEDS ORDERED: epoetin 20,000 units/ml inj IV ONE (08:00)
[2017-12-20 09:10] LABS: ANISOCYTOSIS 2+; HYPOCHROMASIA 1+; PLATELET ESTIMATE NORMAL; POLYCHROMASIA 1+
[2017-12-20] MEDS: ipratropium/albuterol 3ml nebule NEB PRN ×2 (10:30→23:08)
[2017-12-20] MEDS: HYDROcodone/acetaminophen 10/325mg tab PO PRN ×2 (10:59→20:40)
[2017-12-20 11:00] VITALS: BP 150/84
[2017-12-20 15:00] VITALS: BP 152/71
[2017-12-20 19:00] VITALS: BP 106/64
[2017-12-20] MEDS: amiodarone 200mg tablet PO SCH (20:40)
[2017-12-20] MEDS: guaiFENesin ER 600mg tablet PO PRN (20:49)
[2017-12-20 23:00] VITALS: BP 151/84
[2017-12-20] MEDS: temazepam 15mg capsule PO PRN (23:29)
[2017-12-21] VITALS (7 sets, daily range): BP systolic 122–151; BP diastolic 62–81
[2017-12-21] MEDS: VANCOMYCIN LEVEL IV SCH (03:00)
[2017-12-21] MEDS: ipratropium/albuterol 3ml nebule NEB SCH ×4 (03:32→20:18)
[2017-12-21 05:37] LABS: BASOPHILS # (AUTO) 0.1 X10'3 (0-0.2); BASOPHILS % (AUTO) 0.7 % (0-1); EOSINOPHILS # (AUTO) 0.9 X10'3 (0-0.9); EOSINOPHILS % (AUTO) 10.9 % (0-6); HEMATOCRIT 35.3 % (35.0-45.0); HEMOGLOBIN 11.4 g/dl (12.0-16.0); LYMPHOCYTES # (AUTO) 1.1 X10'3 (1.1-4.8); LYMPHOCYTES % (AUTO) 13.1 % (21-51); MEAN CORPUSCULAR HEMOGLOBIN 30.3 PG (27.0-31.0); MEAN CORPUSCULAR HGB CONC 32.1 % (33.0-36.5); MEAN CORPUSCULAR VOLUME 94.3 FL (78-98); MEAN PLATELET VOLUME 9.5 FL (7.4-10.4); MONOCYTES # (AUTO) 0.6 X10'3 (0-0.9); MONOCYTES % (AUTO) 7.8 % (2-12); NEUTROPHILS # (AUTO) 5.6 X10'3 (1.8-7.7); NEUTROPHILS % (AUTO) 67.5 % (42-75); PLATELET COUNT 180 X10'3 (140-440); RED BLOOD COUNT 3.75 X10'6 (4.20-5.60); RED CELL DISTRIBUTION WIDTH 18.5 % (11.5-14.5); WHITE BLOOD COUNT 8.3 X10'3 (4.5-11.0)
[2017-12-21 06:21] LABS: ALANINE AMINOTRANSFERASE 24 U/L (12-78); ALBUMIN 3.2 G/DL (3.4-5.0); ALBUMIN/GLOBULIN RATIO 0.9 (1.1-1.5); ALKALINE PHOSPHATASE 118 IU/L (46-116); ANION GAP 9 (8-16); ASPARTATE AMINO TRANSFERASE 13 U/L (10-37); BILIRUBIN,TOTAL 0.6 MG/DL (0.1-1.0); BLOOD UREA NITROGEN 33 MG/DL (7-18); BUN/CREATININE RATIO 5.3 (6.6-38.0); CALCIUM 8.2 MG/DL (8.5-10.1); CHLORIDE 97 MMOL/L (99-107); CREATININE 6.23 MG/DL (0.40-0.90); GLUCOSE 95 MG/DL (70-104); MAGNESIUM 2.3 MG/DL (1.5-2.4); PHOSPHORUS 4.1 MG/DL (2.3-4.5); POTASSIUM 4.2 MMOL/L (3.5-5.1); SODIUM 134 MMOL/L (135-145); TOTAL CARBON DIOXIDE 28.1 MMOL/L (24-32); TOTAL PROTEIN 6.9 G/DL (6.4-8.2); eGFR 7 ML/MIN
[2017-12-21] MEDS ORDERED: vancomycin/NS 1 GM ADD-VANTAGE 250 ML IV ONE (07:00)
[2017-12-21 07:52] LABS: ANISOCYTOSIS 2+; PLATELET ESTIMATE NORMAL
[2017-12-21 07:54] LABS: HYPOCHROMASIA 1+; POLYCHROMASIA FEW
[2017-12-21] MEDS: metolazone 2.5mg tablet PO SCH (08:40)
[2017-12-21] MEDS: ceftazidime 1000mg in D5W 50ml 50 ML IV SCH ×2 (08:40→20:14)
[2017-12-21] MEDS: zinc sulfate 220mg capsule PO SCH (08:41)
[2017-12-21] MEDS: lactobacillus rhamnosus 10,000 MMU CELLS/CAPSULE PO SCH ×2 (08:41→20:07)
[2017-12-21] MEDS: amiodarone 200mg tablet PO SCH ×2 (08:41→20:07)
[2017-12-21] MEDS: losartan 50mg tablet PO SCH (08:41)
[2017-12-21] MEDS: sevelamer carbonate 800mg tablet PO SCH ×3 (08:41→18:00)
[2017-12-21] MEDS: folic acid/vitamin B complex w/vitamin C 0.8mg tablet PO SCH (08:41)
[2017-12-21] MEDS: docusate sod 100mg capsule PO SCH ×2 (08:41→20:07)
[2017-12-21] MEDS: carVEDilol 3.125mg tablet PO SCH ×2 (08:42→20:07)
[2017-12-21] MEDS: aspirin 325mg tablet, delayed-release (Ecotrin) PO SCH (08:42)
[2017-12-21] MEDS: cinacalcet 30mg tablet PO SCH (08:42)
[2017-12-21] MEDS: sertraline 50mg tablet PO SCH (08:42)
[2017-12-21] MEDS: hydrALAZINE 25 MG tablet PO SCH ×3 (08:42→23:16)
[2017-12-21] MEDS: furosemide 40mg tablet PO SCH ×2 (08:43→20:07)
[2017-12-21] MEDS: heparin, porcine 5000 units/ml vial SQ SCH ×2 (08:43→20:09)
[2017-12-21] MEDS: diltiazem CD 180mg cap (once-daily) PO SCH ×2 (08:44→20:07)
[2017-12-21] MEDS: ondansetron/PF 4mg/2ml inj IV PRN ×2 (08:57→18:49)
[2017-12-21] MEDS: HYDROcodone/acetaminophen 10/325mg tab PO PRN ×3 (10:15→20:08)
[2017-12-21] MEDS: prednisone 10mg tablet PO SCH (13:17)
[2017-12-21] MEDS: guaiFENesin ER 600mg tablet PO PRN (13:18)
[2017-12-21] MEDS: calcium carbonate 500mg chew tablet PO PRN ×2 (16:18→21:47)
[2017-12-21] MEDS ORDERED: pantoprazole 40 MG vial IV ONE (21:35)
[2017-12-21] MEDS: temazepam 15mg capsule PO PRN (21:44)
[2017-12-22] VITALS (10 sets, daily range): BP systolic 109–195; BP diastolic 66–98
[2017-12-22] MEDS: ipratropium/albuterol 3ml nebule NEB SCH ×4 (02:28→20:11)
[2017-12-22] MEDS: HYDROcodone/acetaminophen 10/325mg tab PO PRN ×3 (02:34→13:39)
[2017-12-22] MEDS: VANCOMYCIN LEVEL IV SCH (03:00)
[2017-12-22 03:37] LABS: BASOPHILS % (AUTO) 0.1 % (0-1); EOSINOPHILS % (AUTO) 0.6 % (0-6); HEMATOCRIT 35.1 % (35.0-45.0); HEMOGLOBIN 11.6 g/dl (12.0-16.0); LYMPHOCYTES # (AUTO) 0.6 X10'3 (1.1-4.8); LYMPHOCYTES % (AUTO) 7.6 % (21-51); MEAN CORPUSCULAR HGB CONC 33.1 % (33.0-36.5); MEAN CORPUSCULAR VOLUME 93.7 FL (78-98); MEAN PLATELET VOLUME 10.4 FL (7.4-10.4); MONOCYTES # (AUTO) 0.2 X10'3 (0-0.9); MONOCYTES % (AUTO) 2.3 % (2-12); NEUTROPHILS # (AUTO) 6.7 X10'3 (1.8-7.7); NEUTROPHILS % (AUTO) 89.4 % (42-75); PLATELET COUNT 196 X10'3 (140-440); RED BLOOD COUNT 3.75 X10'6 (4.20-5.60); RED CELL DISTRIBUTION WIDTH 18.6 % (11.5-14.5); WHITE BLOOD COUNT 7.6 X10'3 (4.5-11.0)
[2017-12-22 03:52] LABS: ALANINE AMINOTRANSFERASE 25 U/L (12-78); ALBUMIN 3.3 G/DL (3.4-5.0); ALBUMIN/GLOBULIN RATIO 0.8 (1.1-1.5); ALKALINE PHOSPHATASE 130 IU/L (46-116); ANION GAP 15 (8-16); ASPARTATE AMINO TRANSFERASE 15 U/L (10-37); BILIRUBIN,TOTAL 0.8 MG/DL (0.1-1.0); BLOOD UREA NITROGEN 55 MG/DL (7-18); BUN/CREATININE RATIO 6.7 (6.6-38.0); CALCIUM 7.9 MG/DL (8.5-10.1); CHLORIDE 93 MMOL/L (99-107); CREATININE 8.21 MG/DL (0.40-0.90); GLUCOSE 195 MG/DL (70-104); MAGNESIUM 2.6 MG/DL (1.5-2.4); PHOSPHORUS 5.1 MG/DL (2.3-4.5); SODIUM 134 MMOL/L (135-145); TOTAL CARBON DIOXIDE 26.5 MMOL/L (24-32); TOTAL PROTEIN 7.2 G/DL (6.4-8.2); VANCOMYCIN,RANDOM 27.4 UG/ML; eGFR 5 ML/MIN
[2017-12-22 03:56] LABS: POTASSIUM 6.1 MMOL/L (3.5-5.1)
[2017-12-22] MEDS: prednisone 10mg tablet PO SCH (08:28)
[2017-12-22] MEDS: cinacalcet 30mg tablet PO SCH (08:28)
[2017-12-22] MEDS: hydrALAZINE 25 MG tablet PO SCH ×2 (08:29→15:44)
[2017-12-22] MEDS: losartan 50mg tablet PO SCH (08:29)
[2017-12-22] MEDS: lactobacillus rhamnosus 10,000 MMU CELLS/CAPSULE PO SCH ×2 (08:29→20:18)
[2017-12-22] MEDS: carVEDilol 3.125mg tablet PO SCH ×2 (08:29→20:18)
[2017-12-22] MEDS: amiodarone 200mg tablet PO SCH (08:29)
[2017-12-22] MEDS: aspirin 325mg tablet, delayed-release (Ecotrin) PO SCH (08:29)
[2017-12-22] MEDS: zinc sulfate 220mg capsule PO SCH (08:29)
[2017-12-22] MEDS: sertraline 50mg tablet PO SCH (08:29)
[2017-12-22] MEDS: furosemide 40mg tablet PO SCH ×2 (08:29→20:17)
[2017-12-22] MEDS: folic acid/vitamin B complex w/vitamin C 0.8mg tablet PO SCH (08:29)
[2017-12-22] MEDS: diltiazem CD 180mg cap (once-daily) PO SCH (08:29)
[2017-12-22] MEDS: docusate sod 100mg capsule PO SCH ×2 (08:29→20:19)
[2017-12-22] MEDS: metolazone 2.5mg tablet PO SCH (08:30)
[2017-12-22] MEDS: sevelamer carbonate 800mg tablet PO SCH ×3 (08:30→20:01)
[2017-12-22] MEDS: heparin, porcine 5000 units/ml vial SQ SCH ×2 (08:31→20:19)
[2017-12-22] MEDS: ceftazidime 1000mg in D5W 50ml 50 ML IV SCH ×2 (08:32→20:16)
[2017-12-22] MEDS ORDERED: albuterol 2.5 MG/3 ML nebule NEB PRN (08:40)
[2017-12-22] MEDS ORDERED: albuterol 2.5 MG/3 ML nebule NEB ONE ×2 (08:40→17:05)
[2017-12-22 09:26] LABS: ALBUMIN 3.3 G/DL (3.4-5.0); ANION GAP 13 (8-16); BLOOD UREA NITROGEN 62 MG/DL (7-18); BUN/CREATININE RATIO 7.1 (6.6-38.0); CALCIUM 7.9 MG/DL (8.5-10.1); CHLORIDE 95 MMOL/L (99-107); CREATININE 8.79 MG/DL (0.40-0.90); GLUCOSE 200 MG/DL (70-104); POTASSIUM 5.9 MMOL/L (3.5-5.1); SODIUM 135 MMOL/L (135-145); TOTAL CARBON DIOXIDE 26.9 MMOL/L (24-32); eGFR 5 ML/MIN
[2017-12-22] MEDS: polyethylene glycol 3350 17gm powd pack PO SCH (09:31)
[2017-12-22 10:40] LABS: ANISOCYTOSIS 2+; PLATELET ESTIMATE NORMAL; TOTAL CELLS COUNTED 100
[2017-12-22] MEDS: azithromycin 250mg tablet PO SCH (11:51)
[2017-12-22] MEDS ORDERED: calcium chloride 100 MG/1 ML inj IV ONE (12:00)
[2017-12-22] MEDS: calcium carbonate 500mg chew tablet PO PRN (13:42)
[2017-12-22] MEDS: ondansetron/PF 4mg/2ml inj IV PRN (13:45)
[2017-12-22] MEDS ORDERED: sodium bicarbonate (8.4%) 1 mEq/ml syringe IV ONE (17:05)
[2017-12-22] MEDS ORDERED: dextrose 50%-water 50ml dispensing syringe IV ONE (17:10)
[2017-12-22] MEDS ORDERED: NPH, human insulin isophane inj. SQ STA (17:16)
[2017-12-22] MEDS ORDERED: insulin regular, human 10 units/0.1 ml syringe SQ ONE (17:20)
[2017-12-22] MEDS ORDERED: atropine 0.1mg/ml 10ml syringe ONE (17:26)
[2017-12-22 17:50] LABS: BASOPHILS % (AUTO) 0.1 % (0-1); EOSINOPHILS % (AUTO) 0 % (0-6); HEMATOCRIT 35.4 % (35.0-45.0); HEMOGLOBIN 11.4 g/dl (12.0-16.0); LYMPHOCYTES # (AUTO) 0.7 X10'3 (1.1-4.8); LYMPHOCYTES % (AUTO) 5.9 % (21-51); MEAN CORPUSCULAR HEMOGLOBIN 30.4 PG (27.0-31.0); MEAN CORPUSCULAR HGB CONC 32.2 % (33.0-36.5); MEAN CORPUSCULAR VOLUME 94.6 FL (78-98); MONOCYTES # (AUTO) 0.1 X10'3 (0-0.9); MONOCYTES % (AUTO) 0.9 % (2-12); NEUTROPHILS # (AUTO) 10.5 X10'3 (1.8-7.7); NEUTROPHILS % (AUTO) 93.1 % (42-75); PLATELET COUNT 218 X10'3 (140-440); RED BLOOD COUNT 3.74 X10'6 (4.20-5.60); WHITE BLOOD COUNT 11.3 X10'3 (4.5-11.0)
[2017-12-22 18:08] LABS: ALANINE AMINOTRANSFERASE 28 U/L (12-78); ALBUMIN 3.2 G/DL (3.4-5.0); ALBUMIN/GLOBULIN RATIO 0.9 (1.1-1.5); ALKALINE PHOSPHATASE 121 IU/L (46-116); ANION GAP 14 (8-16); ASPARTATE AMINO TRANSFERASE 17 U/L (10-37); BILIRUBIN,TOTAL 0.7 MG/DL (0.1-1.0); BLOOD UREA NITROGEN 67 MG/DL (7-18); BUN/CREATININE RATIO 7.3 (6.6-38.0); CALCIUM 9.9 MG/DL (8.5-10.1); CHLORIDE 92 MMOL/L (99-107); CREATININE 9.19 MG/DL (0.40-0.90); GLUCOSE 270 MG/DL (70-104); MAGNESIUM 2.7 MG/DL (1.5-2.4); SODIUM 131 MMOL/L (135-145); TOTAL CARBON DIOXIDE 25.3 MMOL/L (24-32); TOTAL PROTEIN 6.9 G/DL (6.4-8.2); TROPONIN I < 0.04 NG/ML (0.0-0.05); eGFR 4 ML/MIN
[2017-12-22 18:09] LABS: ANISOCYTOSIS 2+; PLATELET ESTIMATE NORMAL
[2017-12-22 18:16] LABS: POTASSIUM 6.6 MMOL/L (3.5-5.1)
[2017-12-22] MEDS ORDERED: normal saline 1000ml 250 ML IV PRN (18:32)
[2017-12-22] MEDS ORDERED: epoetin 20,000 units/ml inj IV ONE (18:35)
[2017-12-22] MEDS ORDERED: LIDOcaine 1% (10mg/ml) 2ml vial SQ ONE (18:35)
[2017-12-22] MEDS ORDERED: heparin 1,000 units/ml 10ml inj IV ONE (18:35)
[2017-12-23] VITALS (24 sets, daily range): BP systolic 141–187; BP diastolic 60–101
[2017-12-23] MEDS: hydrALAZINE 25 MG tablet PO SCH ×4 (01:56→22:59)
[2017-12-23] MEDS: temazepam 15mg capsule PO PRN ×2 (01:56→22:59)
[2017-12-23] MEDS: ipratropium/albuterol 3ml nebule NEB SCH ×4 (02:56→20:22)
[2017-12-23] MEDS: VANCOMYCIN LEVEL IV SCH (03:00)
[2017-12-23 06:06] LABS: BASOPHILS % (AUTO) 0.3 % (0-1); EOSINOPHILS # (AUTO) 0.2 X10'3 (0-0.9); EOSINOPHILS % (AUTO) 2.3 % (0-6); HEMATOCRIT 32.7 % (35.0-45.0); HEMOGLOBIN 10.6 g/dl (12.0-16.0); LYMPHOCYTES # (AUTO) 0.9 X10'3 (1.1-4.8); LYMPHOCYTES % (AUTO) 11.4 % (21-51); MEAN CORPUSCULAR HEMOGLOBIN 30.4 PG (27.0-31.0); MEAN CORPUSCULAR HGB CONC 32.2 % (33.0-36.5); MEAN CORPUSCULAR VOLUME 94.2 FL (78-98); MEAN PLATELET VOLUME 9.9 FL (7.4-10.4); MONOCYTES # (AUTO) 0.4 X10'3 (0-0.9); MONOCYTES % (AUTO) 5.1 % (2-12); NEUTROPHILS # (AUTO) 6.3 X10'3 (1.8-7.7); NEUTROPHILS % (AUTO) 80.9 % (42-75); PLATELET COUNT 175 X10'3 (140-440); RED BLOOD COUNT 3.48 X10'6 (4.20-5.60); WHITE BLOOD COUNT 7.8 X10'3 (4.5-11.0)
[2017-12-23 06:16] LABS: ALANINE AMINOTRANSFERASE 23 U/L (12-78); ALBUMIN 3.2 G/DL (3.4-5.0); ALBUMIN/GLOBULIN RATIO 0.9 (1.1-1.5); ALKALINE PHOSPHATASE 116 IU/L (46-116); ANION GAP 10 (8-16); ASPARTATE AMINO TRANSFERASE 12 U/L (10-37); BILIRUBIN,TOTAL 0.5 MG/DL (0.1-1.0); BLOOD UREA NITROGEN 23 MG/DL (7-18); BUN/CREATININE RATIO 5.2 (6.6-38.0); CALCIUM 8.6 MG/DL (8.5-10.1); CHLORIDE 99 MMOL/L (99-107); CREATININE 4.42 MG/DL (0.40-0.90); GLUCOSE 100 MG/DL (70-104); MAGNESIUM 2.1 MG/DL (1.5-2.4); PHOSPHORUS 4.2 MG/DL (2.3-4.5); POTASSIUM 4.6 MMOL/L (3.5-5.1); SODIUM 138 MMOL/L (135-145); TOTAL CARBON DIOXIDE 28.6 MMOL/L (24-32); TOTAL PROTEIN 6.7 G/DL (6.4-8.2); VANCOMYCIN,RANDOM 16.2 UG/ML; eGFR 10 ML/MIN
[2017-12-23] MEDS: ceftazidime 1000mg in D5W 50ml 50 ML IV SCH (07:31)
[2017-12-23] MEDS: sertraline 50mg tablet PO SCH (07:33)
[2017-12-23] MEDS: furosemide 40mg tablet PO SCH ×2 (07:33→19:37)
[2017-12-23] MEDS: carVEDilol 3.125mg tablet PO SCH ×2 (07:33→19:37)
[2017-12-23] MEDS: polyethylene glycol 3350 17gm powd pack PO SCH (07:33)
[2017-12-23] MEDS: cinacalcet 30mg tablet PO SCH (07:33)
[2017-12-23] MEDS: folic acid/vitamin B complex w/vitamin C 0.8mg tablet PO SCH (07:33)
[2017-12-23] MEDS: losartan 50mg tablet PO SCH (07:33)
[2017-12-23] MEDS: docusate sod 100mg capsule PO SCH ×2 (07:33→19:37)
[2017-12-23] MEDS: lactobacillus rhamnosus 10,000 MMU CELLS/CAPSULE PO SCH ×2 (07:33→19:37)
[2017-12-23] MEDS: aspirin 325mg tablet, delayed-release (Ecotrin) PO SCH (07:34)
[2017-12-23] MEDS: zinc sulfate 220mg capsule PO SCH (07:34)
[2017-12-23] MEDS: heparin, porcine 5000 units/ml vial SQ SCH ×2 (07:35→19:39)
[2017-12-23] MEDS: prednisone 10mg tablet PO SCH (07:35)
[2017-12-23] MEDS: azithromycin 250mg tablet PO SCH (08:00)
[2017-12-23] MEDS: sevelamer carbonate 800mg tablet PO SCH ×3 (08:05→17:38)
[2017-12-23] MEDS: metolazone 2.5mg tablet PO SCH (09:59)
[2017-12-23] MEDS: HYDROcodone/acetaminophen 10/325mg tab PO PRN ×2 (10:58→20:44)
[2017-12-23] MEDS: diltiazem 30mg tablet PO SCH ×2 (10:58→19:37)
[2017-12-23] MEDS: vancomycin 125mg/5ml ORAL solution 5ml UD bottle PO SCH ×3 (11:09→19:52)
[2017-12-23] MEDS: ondansetron/PF 4mg/2ml inj IV PRN (16:09)
[2017-12-24] VITALS (18 sets, daily range): BP systolic 125–198; BP diastolic 62–113
[2017-12-24] MEDS: vancomycin 125mg/5ml ORAL solution 5ml UD bottle PO SCH ×4 (01:46→20:53)
[2017-12-24] MEDS: HYDROcodone/acetaminophen 10/325mg tab PO PRN ×2 (01:50→16:29)
[2017-12-24] MEDS: ipratropium/albuterol 3ml nebule NEB SCH ×4 (02:11→20:25)
[2017-12-24] MEDS: VANCOMYCIN LEVEL IV SCH (03:00)
[2017-12-24] MEDS: ondansetron/PF 4mg/2ml inj IV PRN (04:25)
[2017-12-24 05:10] LABS: BASOPHILS % (AUTO) 0.3 % (0-1); EOSINOPHILS # (AUTO) 0.2 X10'3 (0-0.9); EOSINOPHILS % (AUTO) 1.9 % (0-6); HEMATOCRIT 35.7 % (35.0-45.0); HEMOGLOBIN 11.6 g/dl (12.0-16.0); LYMPHOCYTES # (AUTO) 1.4 X10'3 (1.1-4.8); LYMPHOCYTES % (AUTO) 14.7 % (21-51); MEAN CORPUSCULAR HEMOGLOBIN 30.6 PG (27.0-31.0); MEAN CORPUSCULAR HGB CONC 32.5 % (33.0-36.5); MEAN CORPUSCULAR VOLUME 94.2 FL (78-98); MONOCYTES # (AUTO) 0.7 X10'3 (0-0.9); MONOCYTES % (AUTO) 7.3 % (2-12); NEUTROPHILS # (AUTO) 7.2 X10'3 (1.8-7.7); NEUTROPHILS % (AUTO) 75.8 % (42-75); PLATELET COUNT 186 X10'3 (140-440); RED BLOOD COUNT 3.79 X10'6 (4.20-5.60); RED CELL DISTRIBUTION WIDTH 18.4 % (11.5-14.5); WHITE BLOOD COUNT 9.4 X10'3 (4.5-11.0)
[2017-12-24 05:39] LABS: ANISOCYTOSIS 2+; PLATELET ESTIMATE NORMAL
[2017-12-24 06:30] LABS: ALANINE AMINOTRANSFERASE 21 U/L (12-78); ALBUMIN 3.2 G/DL (3.4-5.0); ALBUMIN/GLOBULIN RATIO 0.9 (1.1-1.5); ALKALINE PHOSPHATASE 118 IU/L (46-116); ANION GAP 12 (8-16); ASPARTATE AMINO TRANSFERASE 15 U/L (10-37); BILIRUBIN,TOTAL 0.4 MG/DL (0.1-1.0); BLOOD UREA NITROGEN 49 MG/DL (7-18); BUN/CREATININE RATIO 7.4 (6.6-38.0); CHLORIDE 96 MMOL/L (99-107); CREATININE 6.63 MG/DL (0.40-0.90); GLUCOSE 101 MG/DL (70-104); MAGNESIUM 2.4 MG/DL (1.5-2.4); PHOSPHORUS 4.5 MG/DL (2.3-4.5); SODIUM 136 MMOL/L (135-145); TOTAL CARBON DIOXIDE 27.6 MMOL/L (24-32); TOTAL PROTEIN 6.8 G/DL (6.4-8.2); VANCOMYCIN,RANDOM 15.5 UG/ML; eGFR 7 ML/MIN
[2017-12-24] MEDS: polyethylene glycol 3350 17gm powd pack PO SCH (07:21)
[2017-12-24] MEDS: docusate sod 100mg capsule PO SCH ×2 (07:21→20:52)
[2017-12-24] MEDS: diltiazem 30mg tablet PO SCH ×2 (07:22→20:52)
[2017-12-24] MEDS: losartan 50mg tablet PO SCH (07:22)
[2017-12-24] MEDS: cinacalcet 30mg tablet PO SCH (07:22)
[2017-12-24] MEDS: aspirin 325mg tablet, delayed-release (Ecotrin) PO SCH (07:22)
[2017-12-24] MEDS: heparin, porcine 5000 units/ml vial SQ SCH ×2 (07:22→20:53)
[2017-12-24] MEDS: lactobacillus rhamnosus 10,000 MMU CELLS/CAPSULE PO SCH ×2 (07:22→20:53)
[2017-12-24] MEDS: zinc sulfate 220mg capsule PO SCH (07:22)
[2017-12-24] MEDS: hydrALAZINE 25 MG tablet PO SCH ×3 (07:22→23:22)
[2017-12-24] MEDS: sertraline 50mg tablet PO SCH (07:22)
[2017-12-24] MEDS: folic acid/vitamin B complex w/vitamin C 0.8mg tablet PO SCH (07:22)
[2017-12-24] MEDS: carVEDilol 3.125mg tablet PO SCH ×2 (07:22→20:52)
[2017-12-24] MEDS: cefTAZidime inj. 1 GM in normal saline 100ml IV soln 100 ML IV SCH (07:23)
[2017-12-24] MEDS: predniSONE 20 mg tablet PO SCH (07:28)
[2017-12-24] MEDS: sevelamer carbonate 800mg tablet PO SCH ×4 (07:28→17:45)
[2017-12-24] MEDS ORDERED: cefTRIAXone 1g/NS 100ml IVPB 100 ML IV SCH (08:00)
[2017-12-24] MEDS: temazepam 15mg capsule PO PRN (23:24)
[2017-12-25] MEDS: HYDROcodone/acetaminophen 10/325mg tab PO PRN ×3 (01:53→19:32)
[2017-12-25] MEDS: vancomycin 125mg/5ml ORAL solution 5ml UD bottle PO SCH ×3 (01:56→15:28)
[2017-12-25] MEDS: ipratropium/albuterol 3ml nebule NEB SCH ×4 (02:34→20:14)
[2017-12-25 03:00] VITALS: BP 152/65
[2017-12-25] MEDS: VANCOMYCIN LEVEL IV SCH (03:00)
[2017-12-25 07:00] VITALS: BP 177/87
[2017-12-25] MEDS: heparin, porcine 5000 units/ml vial SQ SCH ×2 (08:00→19:33)
[2017-12-25] MEDS ORDERED: LIDOcaine 1% (10mg/ml) 2ml vial SQ ONE (09:05)
[2017-12-25] MEDS: guaiFENesin ER 600mg tablet PO PRN (10:08)
[2017-12-25] MEDS: predniSONE 20 mg tablet PO SCH (10:08)
[2017-12-25] MEDS: sertraline 50mg tablet PO SCH (10:08)
[2017-12-25] MEDS: folic acid/vitamin B complex w/vitamin C 0.8mg tablet PO SCH (10:09)
[2017-12-25] MEDS: lactobacillus rhamnosus 10,000 MMU CELLS/CAPSULE PO SCH ×2 (10:09→19:30)
[2017-12-25] MEDS: diltiazem 30mg tablet PO SCH ×2 (10:09→19:32)
[2017-12-25] MEDS: losartan 50mg tablet PO SCH (10:09)
[2017-12-25] MEDS: aspirin 325mg tablet, delayed-release (Ecotrin) PO SCH (10:09)
[2017-12-25] MEDS: docusate sod 100mg capsule PO SCH ×2 (10:10→19:31)
[2017-12-25] MEDS: hydrALAZINE 25 MG tablet PO SCH ×3 (10:10→23:26)
[2017-12-25] MEDS: carVEDilol 3.125mg tablet PO SCH ×2 (10:10→19:31)
[2017-12-25] MEDS: cinacalcet 30mg tablet PO SCH (10:10)
[2017-12-25] MEDS: zinc sulfate 220mg capsule PO SCH (10:11)
[2017-12-25] MEDS: cefTAZidime inj. 1 GM in normal saline 100ml IV soln 100 ML IV SCH ×2 (10:12→10:35)
[2017-12-25] MEDS: sevelamer carbonate 800mg tablet PO SCH ×3 (10:12→19:33)
[2017-12-25] MEDS: polyethylene glycol 3350 17gm powd pack PO SCH (10:13)
[2017-12-25 11:00] VITALS: BP 170/99
[2017-12-25] MEDS ORDERED: LORazepam 2 mg/ml vial IM ONE ×2 (12:00→20:55)
[2017-12-25] MEDS ORDERED: hydrALAZINE 20mg/ml inj. IV PRN (15:00)
[2017-12-25] MEDS ORDERED: amLODIPine 5mg tablet PO ONE (15:10)
[2017-12-25 19:00] VITALS: BP 178/81
[2017-12-25 23:00] VITALS: BP 167/82
[2017-12-25] MEDS: calcium carbonate 500mg chew tablet PO PRN (23:27)
[2017-12-25] MEDS: temazepam 15mg capsule PO PRN (23:30)
[2017-12-26 02:00] VITALS: BP 174/86
[2017-12-26] MEDS: ipratropium/albuterol 3ml nebule NEB SCH ×3 (02:27→13:56)
[2017-12-26] MEDS: VANCOMYCIN LEVEL IV SCH (03:00)
[2017-12-26] MEDS: HYDROcodone/acetaminophen 10/325mg tab PO PRN (03:46)
[2017-12-26 06:00] VITALS: BP 166/75
[2017-12-26] MEDS: polyethylene glycol 3350 17gm powd pack PO SCH (08:00)
[2017-12-26] MEDS: hydrALAZINE 25 MG tablet PO SCH ×2 (08:07→08:26)
[2017-12-26] MEDS: folic acid/vitamin B complex w/vitamin C 0.8mg tablet PO SCH (08:22)
[2017-12-26] MEDS: aspirin 325mg tablet, delayed-release (Ecotrin) PO SCH (08:23)
[2017-12-26] MEDS: docusate sod 100mg capsule PO SCH (08:24)
[2017-12-26] MEDS: carVEDilol 3.125mg tablet PO SCH (08:24)
[2017-12-26] MEDS: zinc sulfate 220mg capsule PO SCH (08:24)
[2017-12-26] MEDS: lactobacillus rhamnosus 10,000 MMU CELLS/CAPSULE PO SCH (08:24)
[2017-12-26] MEDS: cinacalcet 30mg tablet PO SCH (08:25)
[2017-12-26] MEDS: sertraline 50mg tablet PO SCH (08:25)
[2017-12-26] MEDS: sevelamer carbonate 800mg tablet PO SCH (08:26)
[2017-12-26] MEDS: heparin, porcine 5000 units/ml vial SQ SCH (08:26)
[2017-12-26] MEDS ORDERED: predniSONE 20 mg tablet PO SCH (08:30)
[2017-12-26] MEDS: diltiazem 30mg tablet PO SCH (08:42)
[2017-12-26] MEDS: losartan 50mg tablet PO SCH (08:42)
[2017-12-26] MEDS ORDERED: ALPRAZolam 0.25mg tablet PO PRN (09:20)
[2017-12-26 11:00] VITALS: BP 168/82
[2017-12-26] MEDS ORDERED: PRED20TA PO (12:06)
[2017-12-26] MEDS ORDERED: CALC300T4 PO (12:06)
[2017-12-26] MEDS ORDERED: ALPR-160 PO (12:06)
[2017-12-26] MEDS ORDERED: LACT1CAP26 PO (12:06)
[2017-12-26] MEDS ORDERED: DILT30TA5 PO (12:06)
== END 2017-12-26 14:20 | disposition home or self-care (01) | DRG 193 ==
LOC: ER 13:30 → ED HOLD 15:09 → PCU 3S 21:00 → ICU 2S 12-22 17:38 → PCU 3S 12-24 12:42
PROVIDERS: ADMIT Internal Medicine Critical Care Medicine
PROC: 5A1D70Z Performance of Urinary Filtration, Intermittent, Less than 6 Hours Per Day (ICD-10-PCS; 2017-12-20)
PROC: 5A1D70Z Performance of Urinary Filtration, Intermittent, Less than 6 Hours Per Day (ICD-10-PCS; 2017-12-22)
PROC: 5A1D70Z Performance of Urinary Filtration, Intermittent, Less than 6 Hours Per Day (ICD-10-PCS; principal; 2017-12-25)
DX: J18.9 Pneumonia, unspecified organism (principal); N18.6 End stage renal disease; I13.2 Hypertensive heart and chronic kidney disease with heart failure and with stage 5 chronic kidney disease, or end stage renal disease; J44.1 Chronic obstructive pulmonary disease with (acute) exacerbation; J44.0 Chronic obstructive pulmonary disease with (acute) lower respiratory infection; I48.0 Paroxysmal atrial fibrillation; E87.5 Hyperkalemia; F41.9 Anxiety disorder, unspecified; F32.9 Major depressive disorder, single episode, unspecified; I49.5 Sick sinus syndrome; G89.4 Chronic pain syndrome; I08.1 Rheumatic disorders of both mitral and tricuspid valves; I27.20 Pulmonary hypertension, unspecified; R21 Rash and other nonspecific skin eruption; K59.00 Constipation, unspecified; I50.9 Heart failure, unspecified; K74.60 Unspecified cirrhosis of liver; Z90.721 Acquired absence of ovaries, unilateral; Z98.51 Tubal ligation status; Z98.1 Arthrodesis status; Z99.2 Dependence on renal dialysis; Z88.8 Allergy status to other drugs, medicaments and biological substances; Z79.899 Other long term (current) drug therapy; Z79.82 Long term (current) use of aspirin; Z87.891 Personal history of nicotine dependence
CPT/HCPCS: 36415; 70220; 70486; 71045; 80048; 80053; 80202; 82948; 83605; 83735; 83880; 84100; 84145; 84484; 85007; 85025; 85651; 86140; 87040; 87070; 90935; 93005; 94640; 94760; 96374; 96375; 99285; A6257; A6402; A6449; C9113; G0257; J0282; J0360; J0461; J0713; J0885; J1644; J1815; J2060; J2405; J2930; J3370; J3490; J7030; J7512

== ENCOUNTER 2018-02-13 13:57 | Emergency (ER) | payer MEDICARE, BC ==
[~2018-02-13] VITALS: Ht 167.6 cm; Wt 77.8 kg
[~2018-02-13 13:57] MED LIST changes: +ALPR-160 PO; +BIOT25008 PO; +CALC300T4 PO; -CLE150C PO; -DILT180C53 PO; +DILT30TA5 PO; -FURO80TA87 PO; +HYDR-3964 PO; +HYDR-4069 PO; +LACT1CAP26 PO; -METO5TAB7 PO; -METR500T4 PO; +PRED20TA PO; -VANC125C4 PO; -biotin PO
[2018-02-13 15:39] LABS: BASOPHILS # (AUTO) 0.1 X10'3 (0-0.2); BASOPHILS % (AUTO) 0.6 % (0-1); EOSINOPHILS # (AUTO) 0.6 X10'3 (0-0.9); EOSINOPHILS % (AUTO) 4.5 % (0-6); HEMATOCRIT 33.9 % (35.0-45.0); HEMOGLOBIN 11.8 g/dl (12.0-16.0); LYMPHOCYTES % (AUTO) 7.3 % (21-51); MEAN CORPUSCULAR HEMOGLOBIN 31.4 PG (27.0-31.0); MEAN CORPUSCULAR HGB CONC 34.9 % (33.0-36.5); MONOCYTES # (AUTO) 0.9 X10'3 (0-0.9); MONOCYTES % (AUTO) 7.1 % (2-12); NEUTROPHILS # (AUTO) 10.6 X10'3 (1.8-7.7); NEUTROPHILS % (AUTO) 80.5 % (42-75); PLATELET COUNT 247 X10'3 (140-440); RED BLOOD COUNT 3.77 X10'6 (4.20-5.60); RED CELL DISTRIBUTION WIDTH 16.1 % (11.5-14.5); WHITE BLOOD COUNT 13.2 X10'3 (4.5-11.0)
[2018-02-13 15:53] LABS: ALANINE AMINOTRANSFERASE 15 U/L (12-78); ALBUMIN 3.3 G/DL (3.4-5.0); ALBUMIN/GLOBULIN RATIO 0.9 (1.1-1.5); ALKALINE PHOSPHATASE 111 IU/L (46-116); ANION GAP 18 (8-16); ASPARTATE AMINO TRANSFERASE 11 U/L (10-37); BILIRUBIN,TOTAL 0.5 MG/DL (0.1-1.0); BLOOD UREA NITROGEN 109 MG/DL (7-18); BUN/CREATININE RATIO 7.3 (6.6-38.0); CHLORIDE 98 MMOL/L (99-107); CREATININE 14.88 MG/DL (0.40-0.90); GLUCOSE 97 MG/DL (70-104); MAGNESIUM 2.6 MG/DL (1.5-2.4); PHOSPHORUS 8.5 MG/DL (2.3-4.5); POTASSIUM 3.7 MMOL/L (3.5-5.1); SODIUM 142 MMOL/L (135-145); TOTAL CARBON DIOXIDE 26.5 MMOL/L (24-32); TOTAL PROTEIN 6.8 G/DL (6.4-8.2); eGFR 3 ML/MIN
[2018-02-13 15:55] LABS: INR 1.1 INR; PARTIAL THROMBOPLASTIN TIME 27 SECONDS (22-32); PROTHROMBIN TIME 11.3 SECONDS (9.0-12.0)
[2018-02-13 18:24] LABS: C DIFF ANTIGEN POSITIVE (NEGATIVE); C DIFF SPECIMEN=DIARRHEA? ACCEPTABLE; C DIFFICILE TOXINS A&B POSITIVE (Neg)
[2018-02-13] MEDS ORDERED: vancomycin 125mg/5ml ORAL solution 5ml UD bottle PO STA (18:40)
[2018-02-13] MEDS ORDERED: metroNIDAZOLE 500mg tablet PO ONE (18:40)
[2018-02-13] MEDS ORDERED: METR500T4 PO (18:45)
[2018-02-13] MEDS ORDERED: VANC125C11 PO (18:45)
[2018-02-13 19:01] VITALS: BP 154/88
== END 2018-02-13 19:02 | disposition home or self-care (01) ==
LOC: ER 13:58
DX: A04.72 Enterocolitis due to Clostridium difficile, not specified as recurrent (principal); R60.0 Localized edema; I13.2 Hypertensive heart and chronic kidney disease with heart failure and with stage 5 chronic kidney disease, or end stage renal disease; N18.6 End stage renal disease; I50.9 Heart failure, unspecified; J44.9 Chronic obstructive pulmonary disease, unspecified; G89.29 Other chronic pain; F17.200 Nicotine dependence, unspecified, uncomplicated; Z98.51 Tubal ligation status; Z98.890 Other specified postprocedural states; Z88.6 Allergy status to analgesic agent; Z88.8 Allergy status to other drugs, medicaments and biological substances; Z99.2 Dependence on renal dialysis; Z79.82 Long term (current) use of aspirin; Z79.899 Other long term (current) drug therapy
CPT/HCPCS: 36415; 71045; 80053; 83735; 84100; 85025; 85610; 85730; 87045; 87046; 87324; 87449; 93005; 99285; J3490

== ENCOUNTER 2018-02-25 14:57 | Emergency (ER) | payer MEDICARE, BC ==
[~2018-02-25] VITALS: Ht 165.1 cm; Wt 75.0 kg
[~2018-02-25 14:57] MED LIST changes: +METR500T4 PO; +VANC125C11 PO
[2018-02-25 15:41] VITALS: BP 162/92
[2018-02-25] MEDS ORDERED: ipratropium/albuterol 3ml nebule NEB ONE (16:35)
[2018-02-25 16:41] LABS: BASOPHILS % (AUTO) 0.3 % (0-1); EOSINOPHILS # (AUTO) 0.2 X10'3 (0-0.9); EOSINOPHILS % (AUTO) 1.9 % (0-6); HEMOGLOBIN 11.4 g/dl (12.0-16.0); LYMPHOCYTES # (AUTO) 0.9 X10'3 (1.1-4.8); LYMPHOCYTES % (AUTO) 8.7 % (21-51); MEAN CORPUSCULAR HEMOGLOBIN 29.6 PG (27.0-31.0); MEAN CORPUSCULAR HGB CONC 32.6 % (33.0-36.5); MEAN CORPUSCULAR VOLUME 90.5 FL (78-98); MEAN PLATELET VOLUME 9.2 FL (7.4-10.4); MONOCYTES # (AUTO) 0.4 X10'3 (0-0.9); MONOCYTES % (AUTO) 3.7 % (2-12); NEUTROPHILS # (AUTO) 8.7 X10'3 (1.8-7.7); NEUTROPHILS % (AUTO) 85.4 % (42-75); PLATELET COUNT 254 X10'3 (140-440); RED BLOOD COUNT 3.87 X10'6 (4.20-5.60); RED CELL DISTRIBUTION WIDTH 16.9 % (11.5-14.5); WHITE BLOOD COUNT 10.2 X10'3 (4.5-11.0)
[2018-02-25 17:04] LABS: ALANINE AMINOTRANSFERASE 14 U/L (12-78); ALBUMIN 3.6 G/DL (3.4-5.0); ALKALINE PHOSPHATASE 109 IU/L (46-116); ANION GAP 21 (8-16); BILIRUBIN,TOTAL 0.7 MG/DL (0.1-1.0); BLOOD UREA NITROGEN 80 MG/DL (7-18); BUN/CREATININE RATIO 6.3 (6.6-38.0); CALCIUM 9.2 MG/DL (8.5-10.1); CHLORIDE 95 MMOL/L (99-107); CREATININE 12.71 MG/DL (0.40-0.90); GLUCOSE 128 MG/DL (70-104); POTASSIUM 5.5 MMOL/L (3.5-5.1); SODIUM 140 MMOL/L (135-145); TOTAL CARBON DIOXIDE 24.4 MMOL/L (24-32); TOTAL PROTEIN 7.2 G/DL (6.4-8.2); eGFR 3 ML/MIN
[2018-02-25 17:10] LABS: PROTHROMBIN TIME 12.5 SECONDS (9.0-12.0)
[2018-02-25 17:11] LABS: INR 1.2 INR; PARTIAL THROMBOPLASTIN TIME 28 SECONDS (22-32)
[2018-02-25 17:25] LABS: ASPARTATE AMINO TRANSFERASE 10 U/L (10-37)
[2018-02-25] MEDS ORDERED: DICY10CA88 PO (17:44)
[2018-02-25] MEDS ORDERED: CHOL4PAC2 PO (17:44)
[2018-02-25] MEDS ORDERED: LOPE-155 PO (17:44)
== END 2018-02-25 17:58 | disposition home or self-care (01) ==
LOC: ER 14:57
DX: R19.7 Diarrhea, unspecified (principal); R10.30 Lower abdominal pain, unspecified; I48.91 Unspecified atrial fibrillation; I11.0 Hypertensive heart disease with heart failure; I50.9 Heart failure, unspecified; K74.60 Unspecified cirrhosis of liver; J45.909 Unspecified asthma, uncomplicated; J44.9 Chronic obstructive pulmonary disease, unspecified; G89.29 Other chronic pain; N28.9 Disorder of kidney and ureter, unspecified; Z99.2 Dependence on renal dialysis; Z98.51 Tubal ligation status; Z90.89 Acquired absence of other organs; Z88.8 Allergy status to other drugs, medicaments and biological substances; Z79.899 Other long term (current) drug therapy; Z79.82 Long term (current) use of aspirin
CPT/HCPCS: 36415; 71045; 80053; 84484; 85025; 85610; 85730; 93005; 94640; 94760; 99285

== ENCOUNTER 2018-04-02 12:47 | Inpatient (IN) | payer MEDICARE, BC ==
[~2018-04-02] VITALS: Ht 165.1 cm; Wt 72.7 kg
[~2018-04-02 12:47] MED LIST changes: +CHOL4PAC2 PO; +LOPE-155 PO; -METR500T4 PO
[2018-04-02] MEDS ORDERED: aspirin 81mg tab.chew PO ONE (13:15)
[2018-04-02] MEDS ORDERED: diltiazem-NS 100mg/100ml 100 ML IV ONE (13:24)
[2018-04-02] MEDS ORDERED: diltiazem 5mg/ml 5ml inj. IV ONE ×2 (13:25→14:35)
[2018-04-02 14:06] LABS: BASOPHILS % (AUTO) 0.5 % (0-1); EOSINOPHILS # (AUTO) 0.3 X10'3 (0-0.9); EOSINOPHILS % (AUTO) 3.4 % (0-6); HEMOGLOBIN 10.6 g/dl (12.0-16.0); LYMPHOCYTES # (AUTO) 1.1 X10'3 (1.1-4.8); LYMPHOCYTES % (AUTO) 13.9 % (21-51); MEAN CORPUSCULAR HEMOGLOBIN 29.2 PG (27.0-31.0); MEAN CORPUSCULAR HGB CONC 32.2 % (33.0-36.5); MEAN CORPUSCULAR VOLUME 90.4 FL (78-98); MEAN PLATELET VOLUME 9.3 FL (7.4-10.4); MONOCYTES # (AUTO) 0.8 X10'3 (0-0.9); MONOCYTES % (AUTO) 10.9 % (2-12); NEUTROPHILS # (AUTO) 5.5 X10'3 (1.8-7.7); NEUTROPHILS % (AUTO) 71.3 % (42-75); PLATELET COUNT 195 X10'3 (140-440); RED BLOOD COUNT 3.65 X10'6 (4.20-5.60); RED CELL DISTRIBUTION WIDTH 17.8 % (11.5-14.5); WHITE BLOOD COUNT 7.7 X10'3 (4.5-11.0)
[2018-04-02 14:23] LABS: ALANINE AMINOTRANSFERASE 9 U/L (12-78); ALBUMIN 3.3 G/DL (3.4-5.0); ALBUMIN/GLOBULIN RATIO 0.8 (1.1-1.5); ALKALINE PHOSPHATASE 105 IU/L (46-116); ANION GAP 14 (8-16); ASPARTATE AMINO TRANSFERASE 19 U/L (10-37); BILIRUBIN,TOTAL 0.9 MG/DL (0.1-1.0); BLOOD UREA NITROGEN 19 MG/DL (7-18); BUN/CREATININE RATIO 3.6 (6.6-38.0); CALCIUM 8.5 MG/DL (8.5-10.1); CHLORIDE 95 MMOL/L (99-107); CREATININE 5.25 MG/DL (0.40-0.90); GLUCOSE 76 MG/DL (70-104); SODIUM 140 MMOL/L (135-145); TOTAL CARBON DIOXIDE 31.4 MMOL/L (24-32); TOTAL PROTEIN 7.2 G/DL (6.4-8.2); eGFR 9 ML/MIN
[2018-04-02 14:25] LABS: POTASSIUM 3.8 MMOL/L (3.5-5.1)
[2018-04-02 14:28] LABS: INR 1.4 INR; PARTIAL THROMBOPLASTIN TIME 25 SECONDS (22-32); PROTHROMBIN TIME 13.6 SECONDS (9.0-12.0)
[2018-04-02 14:29] LABS: MAGNESIUM 2.1 MG/DL (1.5-2.4)
[2018-04-02] MEDS ORDERED: metoprolol tartrate 1mg/ml inj IV ONE (14:35)
[2018-04-02] MEDS ORDERED: CefTRIAXone 2gm/D5W 50ml 50 ML IV ONE (14:50)
[2018-04-02] MEDS ORDERED: HYDR-4069 PO (14:56)
[2018-04-02] MEDS ORDERED: vancomycin 250MG/10ML UD oral solution 10ML BOTTLE PO SCH (14:56)
[2018-04-02] MEDS ORDERED: mag hydrox/Alum hydrox/simeth 30ml oral suspension PO PRN (15:25)
[2018-04-02] MEDS ORDERED: bisacodyl 10mg suppository rectal RC PRN (15:25)
[2018-04-02] MEDS ORDERED: acetaminophen 325mg tablet PO PRN (15:25)
[2018-04-02] MEDS ORDERED: loperamide 2mg capsule PO PRN (15:35)
[2018-04-02] MEDS: diltiazem-NS 100mg/100ml 100 ML IV SCH (15:40)
[2018-04-02] MEDS ORDERED: enoxaparin 60mg/0.6ml syringe SUBCUT ONE (15:45)
[2018-04-02] MEDS ORDERED: albuterol 2.5 MG/3 ML nebule NEB PRN (16:10)
[2018-04-02] MEDS ORDERED: guaiFENesin/DM 10ml UD oral syrup PO PRN (16:50)
[2018-04-02] MEDS: vancomycin 125mg/5ml ORAL solution 5ml UD bottle PO SCH ×2 (17:50→22:21)
[2018-04-02] MEDS: sertraline 50mg tablet PO SCH (17:51)
[2018-04-02 17:56] LABS: URINE HCG NEGATIVE (NEG)
[2018-04-02] MEDS: sevelamer carbonate 800mg tablet PO SCH (18:00)
[2018-04-02 18:04] LABS: CLARITY,URINE SLIGHTLY CLOUDY (Clear); COLOR,URINE YELLOW (Yellow); GLUCOSE, URINE NEGATIVE (Neg); KETONES,URINE NEGATIVE (Neg); LEUKOCYTE ESTERASE ,URINE NEGATIVE (Neg); NITRITES, URINE NEGATIVE (Neg); OCCULT BLOOD,URINE TRACE-LYSED (Neg); PH,URINE 8.5 (4.8-8.0); PROTEIN,URINE 30 mg/dl (Neg); UROBILINOGEN,URINE 0.2 E.U/dL (0.2-1.0)
[2018-04-02 18:05] LABS: UA COLLECTION TYPE CLN CATCH MIDSTREAM
[2018-04-02 18:10] LABS: BACTERIA,URINE 1+ /HPF (Neg); MUCUS STRANDS FEW /LPF (Neg); RBC,URINE 0-2 /HPF (0-2); SQUAMOUS EPITHELIAL CELL,UR MANY /LPF (FEW); WBC,URINE 0-4 /HPF (0-4)
[2018-04-02] MEDS: cinacalcet 30mg tablet PO SCH (18:14)
[2018-04-02] MEDS: ondansetron/PF 4mg/2ml inj IV PRN (18:18)
[2018-04-02 19:30] VITALS: BP 144/66
[2018-04-02] MEDS: docusate sod 100mg capsule PO SCH (20:00)
[2018-04-02] MEDS ORDERED: heparin, porcine 5000 units/ml vial SQ SCH (20:00)
[2018-04-02] MEDS: carVEDilol 3.125mg tablet PO SCH (20:17)
[2018-04-02] MEDS: diltiazem 30mg tablet PO SCH (20:18)
[2018-04-02] MEDS: ipratropium 0.5 MG/2.5ML nebule IH SCH (21:15)
[2018-04-02] MEDS: diphenhydrAMINE 25mg capsule PO PRN (21:58)
[2018-04-02 22:00] VITALS: BP 122/63
[2018-04-02] MEDS: temazepam 15mg capsule PO PRN (23:36)
[2018-04-03] MEDS: ondansetron/PF 4mg/2ml inj IV PRN ×3 (00:09→20:08)
[2018-04-03 02:00] VITALS: BP 115/55
[2018-04-03 02:27] LABS: BASOPHILS % (AUTO) 0.6 % (0-1); EOSINOPHILS # (AUTO) 0.4 X10'3 (0-0.9); EOSINOPHILS % (AUTO) 6.3 % (0-6); HEMOGLOBIN 9.6 g/dl (12.0-16.0); LYMPHOCYTES # (AUTO) 1.2 X10'3 (1.1-4.8); LYMPHOCYTES % (AUTO) 17.1 % (21-51); MEAN CORPUSCULAR HEMOGLOBIN 29.1 PG (27.0-31.0); MEAN CORPUSCULAR HGB CONC 31.9 % (33.0-36.5); MEAN CORPUSCULAR VOLUME 91.2 FL (78-98); MONOCYTES # (AUTO) 0.8 X10'3 (0-0.9); MONOCYTES % (AUTO) 11.8 % (2-12); NEUTROPHILS # (AUTO) 4.5 X10'3 (1.8-7.7); NEUTROPHILS % (AUTO) 64.2 % (42-75); PLATELET COUNT 194 X10'3 (140-440); RED BLOOD COUNT 3.29 X10'6 (4.20-5.60); RED CELL DISTRIBUTION WIDTH 17.8 % (11.5-14.5); WHITE BLOOD COUNT 7.1 X10'3 (4.5-11.0)
[2018-04-03 02:39] LABS: ALANINE AMINOTRANSFERASE 9 U/L (12-78); ALBUMIN 2.8 G/DL (3.4-5.0); ALBUMIN/GLOBULIN RATIO 0.8 (1.1-1.5); ALKALINE PHOSPHATASE 89 IU/L (46-116); ANION GAP 11 (8-16); ASPARTATE AMINO TRANSFERASE 15 U/L (10-37); BILIRUBIN,TOTAL 0.6 MG/DL (0.1-1.0); BLOOD UREA NITROGEN 24 MG/DL (7-18); BUN/CREATININE RATIO 3.8 (6.6-38.0); CALCIUM 8.1 MG/DL (8.5-10.1); CHLORIDE 97 MMOL/L (99-107); CREATININE 6.26 MG/DL (0.40-0.90); GLUCOSE 117 MG/DL (70-104); POTASSIUM 4.3 MMOL/L (3.5-5.1); SODIUM 139 MMOL/L (135-145); TOTAL CARBON DIOXIDE 30.8 MMOL/L (24-32); TOTAL PROTEIN 6.4 G/DL (6.4-8.2); eGFR 7 ML/MIN
[2018-04-03 02:41] LABS: MAGNESIUM 2.2 MG/DL (1.5-2.4)
[2018-04-03] MEDS: ipratropium 0.5 MG/2.5ML nebule IH SCH ×4 (03:14→21:01)
[2018-04-03] MEDS: vancomycin 125mg/5ml ORAL solution 5ml UD bottle PO SCH ×4 (03:33→20:23)
[2018-04-03] MEDS: diphenhydrAMINE 25mg capsule PO PRN (04:23)
[2018-04-03 06:00] VITALS: BP 148/76
[2018-04-03] MEDS ORDERED: SUCROSE PO SCH (08:00)
[2018-04-03] MEDS ORDERED: CHOLESTYRAMINE PO SCH (08:00)
[2018-04-03] MEDS: diltiazem 30mg tablet PO SCH ×2 (08:23→20:08)
[2018-04-03] MEDS: folic acid/vitamin B complex w/vitamin C 0.8mg tablet PO SCH (08:23)
[2018-04-03] MEDS: HYDROcodone/acetaminophen 5mg/325mg tablet PO PRN (08:23)
[2018-04-03] MEDS: zinc sulfate 220mg capsule PO SCH (08:24)
[2018-04-03] MEDS: carVEDilol 3.125mg tablet PO SCH ×2 (08:24→20:08)
[2018-04-03] MEDS: docusate sod 100mg capsule PO SCH ×2 (08:24→19:39)
[2018-04-03] MEDS: sertraline 50mg tablet PO SCH (08:25)
[2018-04-03] MEDS: predniSONE 20 mg tablet PO SCH (08:25)
[2018-04-03] MEDS: aspirin 325mg tablet, delayed-release (Ecotrin) PO SCH (08:26)
[2018-04-03] MEDS: losartan 50mg tablet PO SCH (08:26)
[2018-04-03] MEDS: cinacalcet 30mg tablet PO SCH (08:28)
[2018-04-03] MEDS: sevelamer carbonate 800mg tablet PO SCH ×3 (08:30→16:57)
[2018-04-03 11:00] VITALS: BP 119/63
[2018-04-03] MEDS: diltiazem-NS 100mg/100ml 100 ML IV SCH (11:40)
[2018-04-03] MEDS: ALPRAZolam 0.25mg tablet PO PRN (13:43)
[2018-04-03 15:00] VITALS: BP 139/73
[2018-04-03 19:00] VITALS: BP 150/82
[2018-04-03] MEDS: temazepam 15mg capsule PO PRN (20:08)
[2018-04-03 23:00] VITALS: BP 142/69
[2018-04-04] MEDS: vancomycin 125mg/5ml ORAL solution 5ml UD bottle PO SCH ×3 (02:00→13:51)
[2018-04-04 03:00] VITALS: BP 118/69
[2018-04-04] MEDS: ipratropium 0.5 MG/2.5ML nebule IH SCH ×3 (03:56→20:58)
[2018-04-04] MEDS: diphenhydrAMINE 25mg capsule PO PRN ×2 (05:02→12:59)
[2018-04-04 06:00] VITALS: BP 145/88
[2018-04-04 06:42] LABS: BASOPHILS % (AUTO) 0.3 % (0-1); EOSINOPHILS # (AUTO) 0.4 X10'3 (0-0.9); EOSINOPHILS % (AUTO) 4.1 % (0-6); HEMATOCRIT 30.5 % (35.0-45.0); HEMOGLOBIN 9.7 g/dl (12.0-16.0); LYMPHOCYTES # (AUTO) 1.3 X10'3 (1.1-4.8); LYMPHOCYTES % (AUTO) 13.1 % (21-51); MEAN CORPUSCULAR HEMOGLOBIN 29.1 PG (27.0-31.0); MEAN CORPUSCULAR HGB CONC 31.8 % (33.0-36.5); MEAN CORPUSCULAR VOLUME 91.3 FL (78-98); MEAN PLATELET VOLUME 9.4 FL (7.4-10.4); MONOCYTES # (AUTO) 1.1 X10'3 (0-0.9); MONOCYTES % (AUTO) 10.9 % (2-12); NEUTROPHILS # (AUTO) 7.4 X10'3 (1.8-7.7); NEUTROPHILS % (AUTO) 71.6 % (42-75); PLATELET COUNT 212 X10'3 (140-440); RED BLOOD COUNT 3.34 X10'6 (4.20-5.60); RED CELL DISTRIBUTION WIDTH 17.8 % (11.5-14.5); WHITE BLOOD COUNT 10.3 X10'3 (4.5-11.0)
[2018-04-04 07:08] LABS: ALANINE AMINOTRANSFERASE 25 U/L (12-78); ALBUMIN 2.9 G/DL (3.4-5.0); ALBUMIN/GLOBULIN RATIO 0.8 (1.1-1.5); ALKALINE PHOSPHATASE 102 IU/L (46-116); ANION GAP 13 (8-16); ASPARTATE AMINO TRANSFERASE 49 U/L (10-37); BILIRUBIN,TOTAL 0.6 MG/DL (0.1-1.0); BLOOD UREA NITROGEN 39 MG/DL (7-18); BUN/CREATININE RATIO 4.7 (6.6-38.0); CALCIUM 7.6 MG/DL (8.5-10.1); CHLORIDE 93 MMOL/L (99-107); CREATININE 8.35 MG/DL (0.40-0.90); GLUCOSE 122 MG/DL (70-104); MAGNESIUM 2.1 MG/DL (1.5-2.4); POTASSIUM 4.4 MMOL/L (3.5-5.1); SODIUM 136 MMOL/L (135-145); TOTAL CARBON DIOXIDE 29.9 MMOL/L (24-32); TOTAL PROTEIN 6.4 G/DL (6.4-8.2); eGFR 5 ML/MIN
[2018-04-04] MEDS ORDERED: heparin 1,000unit/ml 10ml vial 10 ML IV ONE (08:00)
[2018-04-04] MEDS ORDERED: epoetin 20,000 units/ml inj IV ONE (08:00)
[2018-04-04] MEDS ORDERED: normal saline 1000ml 250 ML IV PRN (08:00)
[2018-04-04] MEDS ORDERED: LIDOcaine 1% (10mg/ml) 2ml vial SQ ONE (08:00)
[2018-04-04] MEDS: sevelamer carbonate 800mg tablet PO SCH ×3 (08:07→17:38)
[2018-04-04] MEDS: zinc sulfate 220mg capsule PO SCH (08:07)
[2018-04-04] MEDS: cinacalcet 30mg tablet PO SCH (08:07)
[2018-04-04] MEDS: docusate sod 100mg capsule PO SCH ×2 (08:08→20:38)
[2018-04-04] MEDS: HYDROcodone/acetaminophen 5mg/325mg tablet PO PRN (08:08)
[2018-04-04] MEDS: ALPRAZolam 0.25mg tablet PO PRN ×2 (08:08→17:38)
[2018-04-04] MEDS: folic acid/vitamin B complex w/vitamin C 0.8mg tablet PO SCH (08:09)
[2018-04-04] MEDS: predniSONE 20 mg tablet PO SCH (08:09)
[2018-04-04] MEDS: sertraline 50mg tablet PO SCH (08:09)
[2018-04-04] MEDS: aspirin 325mg tablet, delayed-release (Ecotrin) PO SCH (08:10)
[2018-04-04 08:23] LABS: NUCLEATED RED BLOOD CELLS 8 /100WBC (0-0); TOTAL CELLS COUNTED 100
[2018-04-04 08:24] LABS: ANISOCYTOSIS 2+; HYPOCHROMASIA 1+; PLATELET ESTIMATE NORMAL; POLYCHROMASIA 1+
[2018-04-04 11:00] VITALS: BP 157/82
[2018-04-04] MEDS: diltiazem 30mg tablet PO SCH ×2 (13:51→20:37)
[2018-04-04] MEDS: losartan 50mg tablet PO SCH (13:51)
[2018-04-04] MEDS: carVEDilol 3.125mg tablet PO SCH ×2 (13:51→20:40)
[2018-04-04 15:00] VITALS: BP 166/81
[2018-04-04 19:00] VITALS: BP 149/75
[2018-04-04] MEDS: vancomycin 250MG/10ML UD oral solution 10ML BOTTLE PO SCH (20:40)
[2018-04-04] MEDS: temazepam 15mg capsule PO PRN (22:48)
[2018-04-04 23:00] VITALS: BP 128/73
[2018-04-05] MEDS: vancomycin 250MG/10ML UD oral solution 10ML BOTTLE PO SCH ×4 (01:43→20:07)
[2018-04-05 03:00] VITALS: BP 110/75
[2018-04-05] MEDS: ipratropium 0.5 MG/2.5ML nebule IH SCH ×4 (03:12→21:59)
[2018-04-05] MEDS: calcium carbonate 500mg chew tablet PO PRN (03:26)
[2018-04-05] MEDS: diphenhydrAMINE 25mg capsule PO PRN ×2 (03:26→17:03)
[2018-04-05 06:05] LABS: BASOPHILS # (AUTO) 0.1 X10'3 (0-0.2); BASOPHILS % (AUTO) 0.6 % (0-1); EOSINOPHILS # (AUTO) 0.5 X10'3 (0-0.9); EOSINOPHILS % (AUTO) 5.6 % (0-6); HEMATOCRIT 31.2 % (35.0-45.0); HEMOGLOBIN 9.9 g/dl (12.0-16.0); LYMPHOCYTES # (AUTO) 1.5 X10'3 (1.1-4.8); LYMPHOCYTES % (AUTO) 16.7 % (21-51); MEAN CORPUSCULAR HEMOGLOBIN 29.5 PG (27.0-31.0); MEAN CORPUSCULAR HGB CONC 31.8 % (33.0-36.5); MEAN CORPUSCULAR VOLUME 92.9 FL (78-98); MEAN PLATELET VOLUME 8.8 FL (7.4-10.4); MONOCYTES # (AUTO) 0.8 X10'3 (0-0.9); MONOCYTES % (AUTO) 8.6 % (2-12); NEUTROPHILS % (AUTO) 68.5 % (42-75); PLATELET COUNT 192 X10'3 (140-440); RED BLOOD COUNT 3.36 X10'6 (4.20-5.60); WHITE BLOOD COUNT 8.8 X10'3 (4.5-11.0)
[2018-04-05 06:46] LABS: ALANINE AMINOTRANSFERASE 26 U/L (12-78); ALBUMIN 2.7 G/DL (3.4-5.0); ALBUMIN/GLOBULIN RATIO 0.8 (1.1-1.5); ALKALINE PHOSPHATASE 87 IU/L (46-116); ANION GAP 10 (8-16); ASPARTATE AMINO TRANSFERASE 31 U/L (10-37); BILIRUBIN,TOTAL 0.6 MG/DL (0.1-1.0); BLOOD UREA NITROGEN 24 MG/DL (7-18); BUN/CREATININE RATIO 4.4 (6.6-38.0); CALCIUM 7.5 MG/DL (8.5-10.1); CHLORIDE 98 MMOL/L (99-107); CREATININE 5.51 MG/DL (0.40-0.90); GLUCOSE 127 MG/DL (70-104); POTASSIUM 3.6 MMOL/L (3.5-5.1); SODIUM 137 MMOL/L (135-145); TOTAL CARBON DIOXIDE 29.3 MMOL/L (24-32); TOTAL PROTEIN 6.1 G/DL (6.4-8.2); eGFR 8 ML/MIN
[2018-04-05 06:59] LABS: ANISOCYTOSIS 2+; HYPOCHROMASIA 1+; NUCLEATED RED BLOOD CELLS 4 /100WBC (0-0); PLATELET ESTIMATE NORMAL; POLYCHROMASIA 2+; TOTAL CELLS COUNTED 100
[2018-04-05 07:00] LABS: ELLIPTOCYTES FEW
[2018-04-05 07:04] VITALS: BP 135/67
[2018-04-05] MEDS: docusate sod 100mg capsule PO SCH ×2 (08:00→20:07)
[2018-04-05] MEDS ORDERED: LIDOcaine 1% (10mg/ml) 2ml vial SQ ONE (08:00)
[2018-04-05] MEDS ORDERED: albumin (human) 25% 100ml IV 100 ML IV PRN (08:00)
[2018-04-05] MEDS ORDERED: epoetin 20,000 units/ml inj IV ONE (08:00)
[2018-04-05] MEDS ORDERED: heparin 1,000unit/ml 10ml vial 10 ML IV ONE (08:00)
[2018-04-05] MEDS: diltiazem 30mg tablet PO SCH ×2 (08:48→20:07)
[2018-04-05] MEDS: aspirin 325mg tablet, delayed-release (Ecotrin) PO SCH (08:49)
[2018-04-05] MEDS: carVEDilol 3.125mg tablet PO SCH ×2 (08:49→20:07)
[2018-04-05] MEDS: losartan 50mg tablet PO SCH (08:49)
[2018-04-05] MEDS: cinacalcet 30mg tablet PO SCH (08:49)
[2018-04-05] MEDS: folic acid/vitamin B complex w/vitamin C 0.8mg tablet PO SCH (08:49)
[2018-04-05] MEDS: zinc sulfate 220mg capsule PO SCH (08:50)
[2018-04-05] MEDS: sertraline 50mg tablet PO SCH (08:50)
[2018-04-05] MEDS: predniSONE 20 mg tablet PO SCH (08:51)
[2018-04-05] MEDS: sevelamer carbonate 800mg tablet PO SCH ×3 (08:52→17:41)
[2018-04-05 11:00] VITALS: BP 130/72
[2018-04-05 15:00] VITALS: BP 104/65
[2018-04-05] MEDS: ALPRAZolam 0.25mg tablet PO PRN (17:47)
[2018-04-05 18:40] VITALS: BP 128/66
[2018-04-05] MEDS: temazepam 15mg capsule PO PRN (20:07)
[2018-04-05 22:55] VITALS: BP 144/74
[2018-04-06] MEDS: vancomycin 250MG/10ML UD oral solution 10ML BOTTLE PO SCH ×4 (01:52→20:50)
[2018-04-06 02:54] VITALS: BP 124/65
[2018-04-06] MEDS: diphenhydrAMINE 25mg capsule PO PRN ×2 (03:06→21:37)
[2018-04-06] MEDS: ipratropium 0.5 MG/2.5ML nebule IH SCH ×4 (03:14→20:05)
[2018-04-06 06:00] VITALS: BP 144/77
[2018-04-06 06:35] LABS: BASOPHILS # (AUTO) 0.1 X10'3 (0-0.2); BASOPHILS % (AUTO) 0.5 % (0-1); EOSINOPHILS # (AUTO) 0.7 X10'3 (0-0.9); HEMOGLOBIN 10.5 g/dl (12.0-16.0); LYMPHOCYTES # (AUTO) 1.5 X10'3 (1.1-4.8); MEAN CORPUSCULAR HEMOGLOBIN 29.7 PG (27.0-31.0); MEAN CORPUSCULAR HGB CONC 31.8 % (33.0-36.5); MEAN CORPUSCULAR VOLUME 93.4 FL (78-98); MONOCYTES # (AUTO) 0.9 X10'3 (0-0.9); MONOCYTES % (AUTO) 8.9 % (2-12); NEUTROPHILS # (AUTO) 7.1 X10'3 (1.8-7.7); NEUTROPHILS % (AUTO) 68.6 % (42-75); PLATELET COUNT 190 X10'3 (140-440); RED BLOOD COUNT 3.54 X10'6 (4.20-5.60); RED CELL DISTRIBUTION WIDTH 18.7 % (11.5-14.5); WHITE BLOOD COUNT 10.3 X10'3 (4.5-11.0)
[2018-04-06 06:51] LABS: ALANINE AMINOTRANSFERASE 22 U/L (12-78); ALBUMIN 2.8 G/DL (3.4-5.0); ALBUMIN/GLOBULIN RATIO 0.8 (1.1-1.5); ALKALINE PHOSPHATASE 92 IU/L (46-116); ANION GAP 10 (8-16); ASPARTATE AMINO TRANSFERASE 21 U/L (10-37); BILIRUBIN,TOTAL 0.6 MG/DL (0.1-1.0); BLOOD UREA NITROGEN 18 MG/DL (7-18); BUN/CREATININE RATIO 4.2 (6.6-38.0); CALCIUM 7.8 MG/DL (8.5-10.1); CHLORIDE 99 MMOL/L (99-107); CREATININE 4.28 MG/DL (0.40-0.90); GLUCOSE 93 MG/DL (70-104); MAGNESIUM 2.1 MG/DL (1.5-2.4); POTASSIUM 4.1 MMOL/L (3.5-5.1); SODIUM 138 MMOL/L (135-145); TOTAL CARBON DIOXIDE 28.6 MMOL/L (24-32); TOTAL PROTEIN 6.4 G/DL (6.4-8.2); eGFR 11 ML/MIN
[2018-04-06 07:01] LABS: ANISOCYTOSIS 2+; NUCLEATED RED BLOOD CELLS 2 /100WBC (0-0); PLATELET ESTIMATE NORMAL; TOTAL CELLS COUNTED 100
[2018-04-06 07:02] LABS: HYPOCHROMASIA 1+; POLYCHROMASIA 2+; TARGET CELLS FEW
[2018-04-06] MEDS: docusate sod 100mg capsule PO SCH ×2 (08:16→20:50)
[2018-04-06] MEDS: diltiazem 30mg tablet PO SCH ×2 (08:16→20:50)
[2018-04-06] MEDS: losartan 50mg tablet PO SCH (08:17)
[2018-04-06] MEDS: aspirin 325mg tablet, delayed-release (Ecotrin) PO SCH (08:17)
[2018-04-06] MEDS: carVEDilol 3.125mg tablet PO SCH ×2 (08:17→20:50)
[2018-04-06] MEDS: folic acid/vitamin B complex w/vitamin C 0.8mg tablet PO SCH (08:18)
[2018-04-06] MEDS: zinc sulfate 220mg capsule PO SCH (08:20)
[2018-04-06] MEDS: cinacalcet 30mg tablet PO SCH (08:20)
[2018-04-06] MEDS: sevelamer carbonate 800mg tablet PO SCH ×3 (08:20→17:34)
[2018-04-06] MEDS: predniSONE 20 mg tablet PO SCH (08:21)
[2018-04-06] MEDS: sertraline 50mg tablet PO SCH (08:21)
[2018-04-06 11:00] VITALS: BP 130/82
[2018-04-06] MEDS: ALPRAZolam 0.25mg tablet PO PRN (14:31)
[2018-04-06 15:00] VITALS: BP 147/76
[2018-04-06 19:00] VITALS: BP 126/72
[2018-04-06] MEDS: temazepam 15mg capsule PO PRN (21:37)
[2018-04-06 23:00] VITALS: BP 168/85
[2018-04-07] MEDS: calcium carbonate 500mg chew tablet PO PRN (00:31)
[2018-04-07] MEDS: vancomycin 250MG/10ML UD oral solution 10ML BOTTLE PO SCH ×4 (02:28→19:43)
[2018-04-07 03:00] VITALS: BP 138/77
[2018-04-07] MEDS: ipratropium 0.5 MG/2.5ML nebule IH SCH ×4 (03:14→20:10)
[2018-04-07] MEDS: diphenhydrAMINE 25mg capsule PO PRN ×2 (05:06→19:43)
[2018-04-07 05:51] LABS: BASOPHILS % (AUTO) 0.2 % (0-1); EOSINOPHILS # (AUTO) 0.4 X10'3 (0-0.9); EOSINOPHILS % (AUTO) 4.6 % (0-6); HEMATOCRIT 34.8 % (35.0-45.0); HEMOGLOBIN 10.9 g/dl (12.0-16.0); LYMPHOCYTES # (AUTO) 1.3 X10'3 (1.1-4.8); LYMPHOCYTES % (AUTO) 13.4 % (21-51); MEAN CORPUSCULAR HEMOGLOBIN 29.4 PG (27.0-31.0); MEAN CORPUSCULAR HGB CONC 31.5 % (33.0-36.5); MEAN CORPUSCULAR VOLUME 93.5 FL (78-98); MEAN PLATELET VOLUME 9.1 FL (7.4-10.4); MONOCYTES # (AUTO) 0.8 X10'3 (0-0.9); MONOCYTES % (AUTO) 7.8 % (2-12); NEUTROPHILS # (AUTO) 7.1 X10'3 (1.8-7.7); PLATELET COUNT 197 X10'3 (140-440); RED BLOOD COUNT 3.72 X10'6 (4.20-5.60); RED CELL DISTRIBUTION WIDTH 19.8 % (11.5-14.5); WHITE BLOOD COUNT 9.6 X10'3 (4.5-11.0)
[2018-04-07 06:00] VITALS: BP 144/80
[2018-04-07 06:04] LABS: ALANINE AMINOTRANSFERASE 20 U/L (12-78); ALBUMIN/GLOBULIN RATIO 0.8 (1.1-1.5); ALKALINE PHOSPHATASE 97 IU/L (46-116); ANION GAP 13 (8-16); ASPARTATE AMINO TRANSFERASE 16 U/L (10-37); BILIRUBIN,TOTAL 0.6 MG/DL (0.1-1.0); BLOOD UREA NITROGEN 36 MG/DL (7-18); BUN/CREATININE RATIO 5.9 (6.6-38.0); CALCIUM 7.8 MG/DL (8.5-10.1); CHLORIDE 97 MMOL/L (99-107); CREATININE 6.13 MG/DL (0.40-0.90); GLUCOSE 93 MG/DL (70-104); MAGNESIUM 2.4 MG/DL (1.5-2.4); POTASSIUM 4.6 MMOL/L (3.5-5.1); SODIUM 137 MMOL/L (135-145); TOTAL CARBON DIOXIDE 27.5 MMOL/L (24-32); TOTAL PROTEIN 6.7 G/DL (6.4-8.2); eGFR 7 ML/MIN
[2018-04-07 06:44] LABS: ANISOCYTOSIS 2+; PLATELET ESTIMATE NORMAL; POLYCHROMASIA 1+
[2018-04-07] MEDS: sevelamer carbonate 800mg tablet PO SCH ×3 (07:26→17:55)
[2018-04-07] MEDS: diltiazem 30mg tablet PO SCH ×2 (08:01→19:43)
[2018-04-07] MEDS: carVEDilol 3.125mg tablet PO SCH ×2 (08:02→19:43)
[2018-04-07] MEDS: docusate sod 100mg capsule PO SCH ×2 (08:02→20:00)
[2018-04-07] MEDS: aspirin 325mg tablet, delayed-release (Ecotrin) PO SCH (08:03)
[2018-04-07] MEDS: losartan 50mg tablet PO SCH (08:03)
[2018-04-07] MEDS: folic acid/vitamin B complex w/vitamin C 0.8mg tablet PO SCH (08:03)
[2018-04-07] MEDS: sertraline 50mg tablet PO SCH (08:04)
[2018-04-07] MEDS: zinc sulfate 220mg capsule PO SCH (08:04)
[2018-04-07] MEDS: cinacalcet 30mg tablet PO SCH (08:04)
[2018-04-07] MEDS: predniSONE 20 mg tablet PO SCH (08:05)
[2018-04-07] MEDS ORDERED: heparin 1,000 units/ml 10ml inj IV ONE (08:35)
[2018-04-07] MEDS ORDERED: LIDOcaine 1% (10mg/ml) 2ml vial SQ ONE (08:35)
[2018-04-07 11:00] VITALS: BP 147/83
[2018-04-07 15:00] VITALS: BP 156/82
[2018-04-07] MEDS: ondansetron/PF 4mg/2ml inj IV PRN (15:51)
[2018-04-07 18:00] VITALS: BP 157/104
[2018-04-07] MEDS: ALPRAZolam 0.25mg tablet PO PRN (19:43)
[2018-04-07 22:00] VITALS: BP 130/70
[2018-04-08] MEDS: temazepam 15mg capsule PO PRN (00:54)
[2018-04-08] MEDS: diphenhydrAMINE 25mg capsule PO PRN (01:51)
[2018-04-08 02:00] VITALS: BP 120/60
[2018-04-08] MEDS: vancomycin 250MG/10ML UD oral solution 10ML BOTTLE PO SCH ×2 (02:35→07:31)
[2018-04-08] MEDS: ipratropium 0.5 MG/2.5ML nebule IH SCH ×3 (03:00→14:17)
[2018-04-08 06:00] VITALS: BP 120/60
[2018-04-08] MEDS: diltiazem 30mg tablet PO SCH (07:28)
[2018-04-08] MEDS: docusate sod 100mg capsule PO SCH (07:28)
[2018-04-08] MEDS: losartan 50mg tablet PO SCH (07:29)
[2018-04-08] MEDS: aspirin 325mg tablet, delayed-release (Ecotrin) PO SCH (07:29)
[2018-04-08] MEDS: carVEDilol 3.125mg tablet PO SCH (07:29)
[2018-04-08] MEDS: folic acid/vitamin B complex w/vitamin C 0.8mg tablet PO SCH (07:29)
[2018-04-08] MEDS: zinc sulfate 220mg capsule PO SCH (07:31)
[2018-04-08] MEDS: cinacalcet 30mg tablet PO SCH (07:31)
[2018-04-08] MEDS: sevelamer carbonate 800mg tablet PO SCH ×2 (07:31→12:48)
[2018-04-08] MEDS: sertraline 50mg tablet PO SCH (07:32)
[2018-04-08] MEDS: predniSONE 20 mg tablet PO SCH (07:32)
[2018-04-08 11:00] VITALS: BP 137/76
[2018-04-08] MEDS ORDERED: DILT30TA5 PO (12:23)
[2018-04-08] MEDS ORDERED: VANC250C12 PO (12:23)
== END 2018-04-08 14:27 | disposition home or self-care (01) | DRG 371 ==
LOC: ER 12:47 → ED HOLD 15:30 → EDBEDREQ 16:41 → PCU 3S 19:30
PROVIDERS: ATTEND Internal Medicine Critical Care Medicine
PROC: 5A1D70Z Performance of Urinary Filtration, Intermittent, Less than 6 Hours Per Day (ICD-10-PCS; 2018-04-04)
PROC: 5A1D70Z Performance of Urinary Filtration, Intermittent, Less than 6 Hours Per Day (ICD-10-PCS; 2018-04-05)
PROC: 5A1D70Z Performance of Urinary Filtration, Intermittent, Less than 6 Hours Per Day (ICD-10-PCS; principal; 2018-04-07)
DX: A04.72 Enterocolitis due to Clostridium difficile, not specified as recurrent (principal); N18.6 End stage renal disease; I13.2 Hypertensive heart and chronic kidney disease with heart failure and with stage 5 chronic kidney disease, or end stage renal disease; I48.0 Paroxysmal atrial fibrillation; F41.9 Anxiety disorder, unspecified; G89.4 Chronic pain syndrome; I27.20 Pulmonary hypertension, unspecified; I50.9 Heart failure, unspecified; J44.9 Chronic obstructive pulmonary disease, unspecified; K74.60 Unspecified cirrhosis of liver; Z98.51 Tubal ligation status; Z90.721 Acquired absence of ovaries, unilateral; Z99.2 Dependence on renal dialysis; Z98.1 Arthrodesis status; Z79.899 Other long term (current) drug therapy; Z79.82 Long term (current) use of aspirin
CPT/HCPCS: 36415; 71045; 80053; 81001; 81025; 83605; 83735; 83880; 84145; 84484; 85025; 85610; 85730; 87040; 87045; 87046; 87070; 93005; 94640; 94760; 96365; 96376; 99291; G0257; G0378; J0696; J0885; J1644; J1650; J2405; J3490; J7512; Q0163